=== PATIENT | female | born 1955 | race African-American/Black ===

== ENCOUNTER 2017-04-20 22:12 | Emergency (ER) | payer MEDICARE, MEDICAID ==
[~2017-04-20] VITALS: Ht 167.6 cm; Wt 75.0 kg
[~2017-04-20 22:12] MED LIST: ASPI81 CHEW; DILA100C PO; FOLI1TAB6 PO; GABA100C4 PO; HYDR-3516 PO; IPRASOL INH; LEVA750T9 PO; LEVEMIR SQ; LISI-519 PO; METO1TAB42 PO; NOVOLOGP2 SQ; PANT40TA3 PO; THIA100 PO; VENTAER INH
--- NOTE | 2017-04-20 22:56 | PD ---
HPI Chief Complaint: Seizure Time Seen by Provider: 22:56 Travel History International Travel<30 days: No Contact w/Intl Traveler<30days: No Traveled to known affect area: No History of Present Illness HPI 61-year-old female came to the emergency room brought by EMS [facility] for witnessed seizure once and possibly twice. In one of those occasions patient fell and hit her head. Patient has history of seizure disorder and is on Dilantin. She's been getting her medications like she is supposed to. Patient gets seizures infrequently. Currently she is awake. Vital signs are stable. She is complaining of some headache and neck pain. She has a hard collar on. No history of tingling or numbness or weakness of any of her extremities. [facility] Past Medical History Narrative Medical List of her past medical, surgical, social and family history is reviewed from the nursing note. Arthritis: Yes Asthma: Yes Cardiovascular Problems: Yes ([place] X2 ) High Cholesterol: No Chest Pain: Yes Congestive Heart Failure: No COPD: Yes Cerebrovascular Accident: No Diabetes: Yes Diminished Hearing: Yes (DIMINISHED HEARING L EAR) Gastrointestinal Disorders: Yes Genitourinary: No Hypertension: Yes Immune Disorder: No Implanted Vascular Access Dvce: Yes Musculoskeletal: Yes Neurologic: Yes Psychiatric: No Reproductive: No Respiratory: Yes Migraines: No Myocardial Infarction: Yes (X2) Seizures: Yes Sleep Apnea: No Ulcer: Yes ?: Not : 13 Para: 13 Miscarriage: 0 : 0 Past Surgical History Abdominal Surgery: No AICD: No Arteriovenous Shunt: No Cardiac Surgery: No Section: No Cholecystectomy: Yes Ear Surgery: No Endocrine Surgery: No Eye Surgery: No Genitourinary Surgery: No Gynecologic Surgery: No Insulin Pump: No Joint Replacement: Yes (BILAT TOTAL KNEE REPLACEMENT) Oral Surgery: No Pacemaker: No Thoracic Surgery: No Other Surgery: Yes Social History Alcohol Use: No (QUIT 8 YEARS AGO) Tobacco Use: Yes (1/2 PPD) Allergies-Medications (Allergen,Severity, Reaction): Coded Allergies: No Known Allergies (Unverified , 12/24/15) Comments No known drug allergies. Reported Meds & Prescriptions Reported Meds & Active Scripts Active Macrobid (Nitrofurantoin Monoh/Nitrofur Macro) 100 Mg Cap 100 Mg PO BID 10 Days Hydrocodone-Acetamin 5-325 mg (Hydrocodone/Acetaminophen) 5 Mg-325 Mg Tablet 1 Tab PO Q6HR PRN Duoneb (Ipratropium-Albuterol Neb) 0.5-2.5 Mg/3 Ml Neb 1 Nebule INH Q4HR NEB PRN Lisinopril 5 Mg Tab 5 Mg PO DAILY Gnp Vitamin B-1 (Thiamine HCl) 100 Mg Tab 100 Mg PO DAILY Folic Acid 1 Mg Tablet 1 Mg PO DAILY Levemir Inj (Insulin Detemir) 1,000 unit/ 10 ML Vial 5 Units SQ DAILY 30 Days Do not mix with any other Insulin. Pantoprazole (Pantoprazole Sodium) 40 Mg Tab 40 Mg PO DAILY Gabapentin 100 Mg Cap 200 Mg PO BID Dilantin (Phenytoin Extended) 100 Mg Cap 200 Mg PO DAILY Tgt Aspirin (Aspirin) 81 Mg Chw 81 Mg CHEW DAILY Levaquin (Levofloxacin) 750 Mg Tablet 750 Mg PO DAILY Reported Novolog Inj (Insulin Aspart) 1,000 Unit/10 Ml Vial 0 SQ DIRECTED Sliding Scale as directed. Valproic Acid 250 Mg Cap 250 Mg PO TID Vitamin C (Ascorbic Acid) 250 Mg Chew 500 Mg CHEW DAILY Zinc Sulfate 220 Mg Tab 220 Mg PO DAILY Metoprolol Succinate ER 24 HR (Metoprolol Succinate) 25 Mg Tab 25 Mg PO DAILY Ventolin Hfa (Albuterol Sulfate) 18 Gm Aero 0 INH UNKNOWN DOSE Narrative Medication List of her home medications reviewed from the nursing note. Review of Systems Except as stated in HPI: all other systems reviewed are Neg Neurologic: Positive: Headache Physical Exam Narrative GENERAL: Awake, alert, looks older than her age, coarse features of her face, no obvious distress SKIN: Focused skin assessment warm/dry. HEAD: Atraumatic. Normocephalic. EYES: Pupils equal and round. No scleral icterus. No injection or drainage. ENT: No nasal bleeding or discharge. Mucous membranes pink and moist. NECK: Trachea midline. No JVD. C-collar CARDIOVASCULAR: Regular rate and rhythm. No murmur appreciated. RESPIRATORY: No accessory muscle use. Clear to auscultation. Breath sounds equal bilaterally. GASTROINTESTINAL: Abdomen soft, non-tender, nondistended. Hepatic and splenic margins not palpable. MUSCULOSKELETAL: No obvious deformities. No clubbing. No cyanosis. No edema. NEUROLOGICAL: Awake and alert. No obvious cranial nerve deficits. Motor grossly within normal limits. Normal speech. PSYCHIATRIC: Appropriate mood and affect; insight and judgment normal. Data Data Last Documented VS Orders Orders Complete Blood Count With Diff (04/20/17 22:58) Comprehensive Metabolic Panel (04/20/17 22:58) Electrocardiogram (04/20/17 ) Ct Brain W/O Iv Contrast(Rout) (04/20/17 ) Blood Glucose (04/20/17 23:02) Ecg Monitoring (04/20/17 23:02) Iv Access Insert/Monitor (04/20/17 23:02) Oximetry (04/20/17 23:02) Sodium Chloride 0.9% Flush (Ns Flush) (04/20/17 23:15) Ct Cerv Spine W/O Contrast (04/20/17 ) ^ Seizure Precautions (04/20/17 23:02) Phenytoin (Dilantin) (04/20/17 22:58) Valproic Acid (Depakene) (04/20/17 23:39) Phenytoin (Dilantin) (04/21/17 00:00) Urinalysis - C+S If Indicated (04/20/17 23:56) ^ Straight Catheter (04/20/17 23:56) Urine Culture (04/21/17 00:05) Nitrofurantoin Monohyd Macrocr (Macrobid (04/21/17 01:00) Ed Discharge Order (04/21/17 00:51) Ondansetron Inj (Zofran Inj) (04/21/17 02:15) Labs Laboratory Tests Test 04/20/17 23:00 04/21/17 00:05 White Blood Count 15.5 TH/MM3 Red Blood Count 3.18 MIL/MM3 Hemoglobin 10.1 GM/DL Hematocrit 29.8 % Mean Corpuscular Volume 93.9 FL Mean Corpuscular Hemoglobin 31.7 PG Mean Corpuscular Hemoglobin Concent 33.7 % Red Cell Distribution Width 16.2 % Platelet Count 491 TH/MM3 Mean Platelet Volume 7.1 FL Neutrophils (%) (Auto) 77.6 % Lymphocytes (%) (Auto) 9.9 % Monocytes (%) (Auto) 10.3 % Eosinophils (%) (Auto) 1.2 % Basophils (%) (Auto) 1.0 % Neutrophils # (Auto) 12.0 TH/MM3 Lymphocytes # (Auto) 1.5 TH/MM3 Monocytes # (Auto) 1.6 TH/MM3 Eosinophils # (Auto) 0.2 TH/MM3 Basophils # (Auto) 0.2 TH/MM3 CBC Comment DIFF FINAL Differential Comment Blood Urea Nitrogen 20 MG/DL Creatinine 0.47 MG/DL Random Glucose 97 MG/DL Total Protein 6.3 GM/DL Albumin 2.0 GM/DL Calcium Level 8.2 MG/DL Alkaline Phosphatase 247 U/L Aspartate Amino Transf (AST/SGOT) 43 U/L Alanine Aminotransferase (ALT/SGPT) 50 U/L Total Bilirubin 0.1 MG/DL Sodium Level 143 MEQ/L Potassium Level 3.8 MEQ/L Chloride Level 109 MEQ/L Carbon Dioxide Level 26.8 MEQ/L Anion Gap 7 MEQ/L Estimat Glomerular Filtration Rate 164 ML/MIN Phenytoin (Dilantin) Level 5.8 MCG/ML Valproic Acid (Depakene) Level 4 MCG/ML Urine Color YELLOW Urine Turbidity HAZY Urine pH 6.0 Urine Specific [place] 1.017 Urine Protein TRACE mg/dL Urine Glucose (UA) NEG mg/dL Urine Ketones NEG mg/dL Urine Occult Blood TRACE Urine Nitrite NEG Urine Bilirubin NEG Urine Urobilinogen LESS THAN 2.0 MG/DL Urine Leukocyte Esterase LARGE Urine RBC 25 /hpf Urine WBC /hpf Urine WBC Clumps MANY Urine Squamous Epithelial Cells 1 /hpf Urine Bacteria RARE /hpf Urine Mucus FEW /lpf Microscopic Urinalysis Comment CATH-CULTURE IND MDM Medical Decision Making Medical Screen Exam Complete: Yes Emergency Medical Condition: Yes Medical Record Reviewed: Yes Interpretation(s) Twelve-lead EKG was reviewed by me. Normal sinus rhythm, normal axis, questionable old anterior UT, nonspecific ST-T wave changes. Heart rate of 98 bpm. Differential Diagnosis Breakthrough seizure, intracranial bleed, cervical fracture low Dilantin level Narrative Course 11:55 PM blood test results are back. Dilantin level is low. Rest of the blood test is within acceptable limits. Currently awaiting for the CT scan of her head and C-spine. Ordered her 300 mg of Dilantin here. If the CT scan is negative [facility]'ll [facility]. 12:48 AM UA is back in its positive for UTI. I've given her dose of Macrobid. I'm comfortable discharging this [facility] the [facility]. Procedures EKG Prior to Arrival: No Diagnosis Primary Impression: UTI (urinary tract infection) Qualified Codes: N39.0 - Urinary tract infection, site not specified Additional Impressions: Seizure Seizure disorder Referrals: Primary Care Physician 2 days Additional Instructions: Please return to the ER if condition worsens or any other new concerns. Take the medication as per the prescription direction. Get a repeat Dilantin level in 2-3 days. Med/Other Pt SpecificInfo: Prescription(s) given Scripts Nitrofurantoin Monohydrate Macrocrystals (Macrobid) 100 Mg Cap 100 MG PO BID for Infection for 10 Days, #20 CAP 0 Refills Prov: Ekaterina Alonzo MD 04/21/17 Disposition: 01 DISCHARGE HOME Condition: Stable Ekaterina Alonzo MD Apr 20, 2017 22:56
[2017-04-20 23:00] VITALS: BP 146/85; PULSE 96; RESP 16; O2SAT 98
[2017-04-20 23:13] VITALS: PULSE 98; RESP 20; O2SAT 93
[2017-04-20] MEDS ORDERED: SODIUM CHLORIDE 0.9% FLUSH 10 ML FLUSH IVF PRN (23:15)
[2017-04-20 23:19] LABS: BASOPHIL # 0.2 TH/MM3 (0-0.2); EOSINOPHIL # 0.2 TH/MM3 (0-0.4); EOSINOPHIL % 1.2 % (0.0-4.0); HEMATOCRIT 29.8 % (35.0-46.0); HEMO FLAGS DIFF FINAL; LYMPH % 9.9 % (9.0-44.0); LYMPHOCYTE # 1.5 TH/MM3 (1.0-4.8); MEAN CELL VOLUME 93.9 FL (80.0-100.0); MEAN CORPUSCULAR HEMOGLOBIN 31.7 PG (27.0-34.0); MEAN CORPUSCULAR HGB CONC 33.7 % (32.0-36.0); MONO % 10.3 % (0.0-8.0); NEUT % 77.6 % (16.0-70.0); PLATELET COUNT 491 TH/MM3 (150-450); RED BLOOD COUNT 3.18 MIL/MM3 (4.00-5.30); RED CELL DISTRIBUTION WIDTH 16.2 % (11.6-17.2); WHITE BLOOD COUNT 15.5 TH/MM3 (4.0-11.0)
[2017-04-20 23:33] LABS: ALT (GPT) 50 U/L (10-53); ANION GAP 7 MEQ/L (5-15); AST (GOT) 43 U/L (15-37); BICARBONATE 26.8 MEQ/L (21.0-32.0); BLOOD UREA NITROGEN 20 MG/DL (7-18); CHLORIDE 109 MEQ/L (98-107); GLOMERULAR FILTRATION RATE 164 ML/MIN (>89); POTASSIUM 3.8 MEQ/L (3.5-5.1); SODIUM (NA) 143 MEQ/L (136-145)
[2017-04-20 23:36] LABS: ALKALINE PHOSPHATASE 247 U/L (45-117); TOTAL BILIRUBIN ADULT 0.1 MG/DL (0.2-1.0)
[2017-04-20] MEDS ORDERED: ZINC220T PO (23:41)
[2017-04-20] MEDS ORDERED: METO1TAB42 PO (23:41)
[2017-04-20] MEDS ORDERED: VALP250C PO (23:41)
[2017-04-20] MEDS ORDERED: NOVOLOGP2 SQ (23:41)
[2017-04-20] MEDS ORDERED: VITA250C3 CHEW (23:41)
[2017-04-21] MEDS ORDERED: PHENYTOIN SODIUM 100 MG CAP PO ONE
--- NOTE | 2017-04-21 00:16 | RADRPT ---
EXAM DATE/TIME: 04/20/2017 23:49 [facility] COMPARISON: CT BRAIN W/O CONTRAST, March 21, 2017, 21:19. INDICATIONS : Fall. RADIATION DOSE: 33.32 CTDIvol (mGy) MEDICAL HISTORY : Seizures. Hypertension. SURGICAL HISTORY : None. ENCOUNTER: Initial ACUITY: 1 day PAIN SCALE: Non-responsive LOCATION: cranial TECHNIQUE: Multiple contiguous axial images were obtained of the head. Using automated exposure control and adj ustment of the mA and/or kV according to patient size, radiation dose was kept as low as reasonably a chievable to obtain optimal diagnostic quality images. DICOM format image data is available electro nically for review and comparison. FINDINGS: Perihepatic areas of decreased density in the bilateral periventricular white matter and centrum semi ovale A., unchanged. There is mild atrophy. No signs of hemorrhage, mass or acute infarct. There are no fractures. CONCLUSION: No acute disease. Milind Steven MD on April 21, 2017 at 0:15 Board Certified Radiologist. This report was verified electronically.
--- NOTE | 2017-04-21 00:19 | RADRPT ---
EXAM DATE/TIME: 04/20/2017 23:49 [facility] COMPARISON: No previous studies available for comparison. INDICATIONS : Fall. RADIATION DOSE: 25.64 CTDIvol (mGy) MEDICAL HISTORY : Hypertension. SURGICAL HISTORY : None. ENCOUNTER: Initial ACUITY: 1 day PAIN SCALE: Non-responsive LOCATION: neck TECHNIQUE: Volumetric scanning of the cervical spine was performed. Multiplanar reconstructions in the sagittal, coronal and oblique axial planes were performed. Using automated exposure control and adjustment o f the mA and/or kV according to patient size, radiation dose was kept as low as reasonably achievable to obtain optimal diagnostic quality images. DICOM format image data is available electronically f or review and comparison. FINDINGS: Severe disc space narrowing at C4-5 through C7-T1 identified. No prevertebral soft tissue swelling or compression deformity. Prominent multilevel osteophyte formation greatest at C4-C7. Alignment is nor mal. The odontoid process is intact. Multilevel uncovertebral hypertrophy. Severe stenosis at C3-4 se condary to a broad-based protrusion demonstrating mass effect on the cord. There is severe canal sten osis at C4-5 with mild mass effect on the cord and severe bilateral foraminal narrowing secondary to uncovertebral hypertrophy and a diffuse disc osteophyte complex. Moderate to severe canal stenosis at C5-6 secondary to a diffuse disc osteophyte complex with mass effect on the cord. There is severe bi lateral foraminal narrowing secondary to uncovertebral hypertrophy. Moderate stenosis at C6-7 with mi ld mass effect on the cord secondary to osteophytic ridging and a diffuse disc bulge. Severe bilatera l foraminal narrowing. There is a large right-sided pleural effusion. CONCLUSION: Severe degenerative changes without evidence for acute fracture. Right pleural effusion. Milind Steven MD on April 21, 2017 at 0:15 Board Certified Radiologist. This report was verified electronically.
[2017-04-21 00:29] LABS: BACTERIA, URINE RARE /hpf; BLOOD, URINE TRACE (NEG); COMMENT (UR) CATH-CULTURE IND; CULTURE IF INDICATED CATH CULTURE IND; GLUCOSE,URINE NEG (NEG); KETONE, URINE NEG (NEG); MUCUS URINE FEW /lpf (OCC); NITRITE,URINE NEG (NEG); SQUAMOUS EPITHELIAL CELL URINE 1 /hpf (0-5); URINE COLOR YELLOW (YELLW/STRAW)
[2017-04-21] MEDS ORDERED: MACR100C2 PO (00:51)
[2017-04-21] MEDS ORDERED: NITROFURANTOIN MONOHYD MACROCR 100 MG CAP PO ONE (01:00)
[2017-04-21] MEDS ORDERED: ONDANSETRON HCL 4 MG/2 ML VIAL ONE (02:15)
[2017-04-21 07:00] VITALS: BP 126/78; PULSE 106; RESP 16; TEMP 98.3; O2SAT 92
--- NOTE | 2017-04-21 07:59 | EKG ---
Date Performed: 04/20/2017 Time Performed: 22:53:52 PTAGE: 61 years EKG: Sinus rhythm NORMAL ECG Compared to prior electrocardiogram, ST-T wave changes have resolved and premature atrial contractions are no longer present. PREVIOUS TRACING : 03/17/2017 13.46 DOCTOR: Heladio Cruz Interpretating Date/Time 04/21/2017 07:57:42
== END 2017-04-21 08:44 | disposition home or self-care (01) ==
LOC: NEPC 22:12
DX: N39.0 Urinary tract infection, site not specified (principal); G40.909 Epilepsy, unspecified, not intractable, without status epilepticus; R51 Headache; M54.2 Cervicalgia; B96.89 Other specified bacterial agents as the cause of diseases classified elsewhere; J45.909 Unspecified asthma, uncomplicated; E11.9 Type 2 diabetes mellitus without complications; I10 Essential (primary) hypertension; H91.90 Unspecified hearing loss, unspecified ear; I25.2 Old myocardial infarction; F17.200 Nicotine dependence, unspecified, uncomplicated; Z79.4 Long term (current) use of insulin; Z87.19 Personal history of other diseases of the digestive system; Z87.39 Personal history of other diseases of the musculoskeletal system and connective tissue
CPT/HCPCS: 70450; 72125; 80053; 80164; 80185; 81001; 85025; 87086; 93005; 99285; J2405

== ENCOUNTER 2017-05-30 01:14 | Observation (INO) | payer MEDICARE, MEDICAID ==
[2017-05-30] VITALS (12 sets, daily range): BP systolic 104–141; BP diastolic 62–77; PULSE 89–98; RESP 18–25; TEMP 96.3–98.2; O2SAT 96–100
[~2017-05-30] VITALS: Ht 167.6 cm; Wt 65.0 kg
[~2017-05-30 01:14] MED LIST changes: +MACR100C2 PO; +VALP250C PO; +VITA250C3 CHEW; +ZINC220T PO
[2017-05-30] MEDS ORDERED: LORazepam 2 MG/ML VIAL ONE (01:26)
[2017-05-30] MEDS ORDERED: SODIUM CHLORIDE 0.9% FLUSH 10 ML FLUSH IVF PRN (01:30)
[2017-05-30] MEDS ORDERED: LORazepam 2 MG/ML VIAL IV PUSH ONE (01:45)
--- NOTE | 2017-05-30 01:47 | RADRPT ---
EXAM DATE/TIME: 05/30/2017 01:30 [facility] COMPARISON: CHEST SINGLE AP, April 01, 2017, 3:24. INDICATIONS : MAS, CVA, short of breath. MEDICAL HISTORY : None. SURGICAL HISTORY : None. ENCOUNTER: Initial ACUITY: 1 day PAIN SCORE: 0/10 LOCATION: Bilateral chest FINDINGS: The heart size is normal. There is increased density in the medial left base. The right lung is gross ly clear. No effusion is seen. CONCLUSION: Left medial base consolidation or atelectasis. Alexander Willis MD on May 30, 2017 at 1:44 Board Certified Radiologist. This report was verified electronically.
[2017-05-30 02:19] LABS: AUTOMATED NEUTROPHIL # 10.8 TH/MM3 (1.8-7.7); BASOPHIL # 0.1 TH/MM3 (0-0.2); BASOPHIL % 0.7 % (0.0-2.0); EOSINOPHIL # 0.4 TH/MM3 (0-0.4); EOSINOPHIL % 2.6 % (0.0-4.0); HEMATOCRIT 35.4 % (35.0-46.0); HEMOGLOBIN 11.7 GM/DL (11.6-15.3); LYMPH % 18.3 % (9.0-44.0); LYMPHOCYTE # 2.8 TH/MM3 (1.0-4.8); MEAN CORPUSCULAR HEMOGLOBIN 28.9 PG (27.0-34.0); MEAN CORPUSCULAR HGB CONC 33.2 % (32.0-36.0); MEAN PLATELET VOLUME 7.8 FL (7.0-11.0); MONO % 8.5 % (0.0-8.0); MONOCYTE # 1.3 TH/MM3 (0-0.9); NEUT % 69.9 % (16.0-70.0); PLATELET COUNT 504 TH/MM3 (150-450); RED BLOOD COUNT 4.06 MIL/MM3 (4.00-5.30); RED CELL DISTRIBUTION WIDTH 16.3 % (11.6-17.2); WHITE BLOOD COUNT 15.4 TH/MM3 (4.0-11.0)
[2017-05-30 02:21] LABS: AMORPHOUS SEDIMENT, URINE OCC; BACTERIA, URINE MANY /hpf; BILIRUBIN, URINE NEG (NEG); BLOOD, URINE SMALL (NEG); GLUCOSE,URINE NEG (NEG); HYALINE CAST, URINE 8 /lpf (RARE); KETONE, URINE NEG (NEG); NITRITE,URINE NEG (NEG); URINE COLOR YELLOW (YELLW/STRAW); URINE LEUKOCYTE ESTERASE LARGE (NEG)
[2017-05-30] MEDS ORDERED: PIPERACIL-TAZO 3.375 GM PREMIX 50 ML IV ONE (02:30)
[2017-05-30 02:31] LABS: ALBUMIN 3.1 GM/DL (3.4-5.0); ALT (GPT) 156 U/L (10-53); AST (GOT) 80 U/L (15-37); BICARBONATE 24.8 MEQ/L (21.0-32.0); BLOOD UREA NITROGEN 42 MG/DL (7-18); CALCIUM 9.2 MG/DL (8.5-10.1); CHLORIDE 104 MEQ/L (98-107); CREATININE 0.57 MG/DL (0.50-1.00); GLOMERULAR FILTRATION RATE 131 ML/MIN (>89); GLUCOSE,RANDOM 79 MG/DL (74-106); SODIUM (NA) 137 MEQ/L (136-145)
[2017-05-30 02:35] LABS: ALKALINE PHOSPHATASE 888 U/L (45-117); TOTAL BILIRUBIN ADULT 0.2 MG/DL (0.2-1.0); TOTAL PROTEIN 7.8 GM/DL (6.4-8.2); TROPONIN I LESS THAN 0.02 NG/ML (0.02-0.05)
[2017-05-30] MEDS ORDERED: GABA300C5 PO (02:49)
[2017-05-30] MEDS ORDERED: FERR325T18 PO (02:49)
[2017-05-30] MEDS ORDERED: LEVEMIR SQ (02:49)
[2017-05-30] MEDS ORDERED: TYLE325T PO (02:49)
[2017-05-30] MEDS ORDERED: IPRASOL INH (02:49)
[2017-05-30] MEDS ORDERED: PHEN100C PO (02:49)
[2017-05-30] MEDS ORDERED: DIFL100T PO (02:49)
[2017-05-30] MEDS ORDERED: MIRTA15 PO (02:49)
[2017-05-30] MEDS ORDERED: CIPR-9 PO (02:49)
[2017-05-30] MEDS ORDERED: AMBI5TAB PO (02:49)
--- NOTE | 2017-05-30 02:54 | RADRPT ---
EXAM DATE/TIME: 05/30/2017 02:18 [facility] COMPARISON: CT BRAIN W/O CONTRAST, April 20, 2017, 23:49. INDICATIONS : Seizure. RADIATION DOSE: 31.60 CTDIvol (mGy) MEDICAL HISTORY : Cardiovascular disease. Hypertension. SURGICAL HISTORY : Cholecystectomy. hips ENCOUNTER: Initial ACUITY: 1 day PAIN SCALE: Non-responsive LOCATION: cranial TECHNIQUE: Multiple contiguous axial images were obtained of the head. Using automated exposure control and adj ustment of the mA and/or kV according to patient size, radiation dose was kept as low as reasonably a chievable to obtain optimal diagnostic quality images. DICOM format image data is available electro nically for review and comparison. FINDINGS: CEREBRUM: The ventricles are normal for age. No evidence of midline shift, mass lesion, hemorrhage or acute in farction. There is mild low-density in the periventricular white matter. No extra-axial fluid collec tions are seen. POSTERIOR FOSSA: The cerebellum and brainstem are intact. The 4th ventricle is midline. The cerebellopontine angle i s unremarkable. EXTRACRANIAL: The visualized portion of the orbits is intact. SKULL: The calvaria is intact. No evidence of skull fracture. CONCLUSION: No acute intracranial abnormality is seen. There is mild increased density in the periventricular whi te matter likely related to small vessel ischemic change. Alexander Willis MD on May 30, 2017 at 2:51 Board Certified Radiologist. This report was verified electronically.
--- NOTE | 2017-05-30 03:43 | PD ---
HPI . Seizures Chief Complaint: Seizure Time Seen by Provider: :18 Travel History International Travel<30 days: No Contact w/Intl Traveler<30days: No Traveled to known affect area: No History of Present Illness HPI 7-year-old female history of seizures, been more irritable irritable and has had more seizures today than her usual despite having increase in her seizure medications. 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 Above as per communication of Melanie BROOKS [facility] Past Medical History Narrative Medical Past medical history reviewed Medical History: Unable to Obtain Arthritis: Yes Asthma: Yes Cardiovascular Problems: Yes ([place] X2 ) High Cholesterol: No Chest Pain: Yes Congestive Heart Failure: No COPD: Yes Cerebrovascular Accident: No Diabetes: Yes Patient Takes Glucophage: No Diminished Hearing: Yes (DIMINISHED HEARING L EAR) Gastrointestinal Disorders: Yes Genitourinary: No Hypertension: Yes Immune Disorder: No Implanted Vascular Access Dvce: Yes Musculoskeletal: Yes Neurologic: Yes Psychiatric: No Reproductive: No Respiratory: Yes Migraines: No Myocardial Infarction: Yes (X2) Seizures: Yes Sleep Apnea: No Ulcer: Yes Tetanus Vaccination: Unknown ?: Unknown : 9 Para: 9 Miscarriage: 0 : 0 Past Surgical History Surgical History: Unable to Obtain Abdominal Surgery: No AICD: No Arteriovenous Shunt: No Cardiac Surgery: No Section: No Cholecystectomy: Yes Ear Surgery: No Endocrine Surgery: No Eye Surgery: No Genitourinary Surgery: No Gynecologic Surgery: No Insulin Pump: No Joint Replacement: Yes (BILAT TOTAL KNEE REPLACEMENT) Oral Surgery: No Pacemaker: No Thoracic Surgery: No Other Surgery: Yes Social History Alcohol Use: No (QUIT 8 YEARS AGO) Tobacco Use: No (1/2 PPD) Substance Use: No (UTO) Allergies-Medications (Allergen,Severity, Reaction): Coded Allergies: No Known Allergies (Unverified Adverse Reaction, Unknown, 05/30/17) Reported Meds & Prescriptions Reported Meds & Active Scripts Active Hydrocodone-Acetamin 5-325 mg (Hydrocodone/Acetaminophen) 5 Mg-325 Mg Tablet 1 Tab PO Q6HR PRN Lisinopril 5 Mg Tab 5 Mg PO DAILY Gnp Vitamin B-1 (Thiamine HCl) 100 Mg Tab 100 Mg PO DAILY Folic Acid 1 Mg Tablet 1 Mg PO DAILY Levemir Inj (Insulin Detemir) 1,000 unit/ 10 ML Vial 5 Units SQ DAILY 30 Days Do not mix with any other Insulin. Pantoprazole (Pantoprazole Sodium) 40 Mg Tab 40 Mg PO DAILY Tgt Aspirin (Aspirin) 81 Mg Chw 81 Mg CHEW DAILY Reported Duoneb (Ipratropium-Albuterol Neb) 0.5-2.5 Mg/3 Ml Neb 1 Nebule INH Q4HR NEB Ambien (Zolpidem Tartrate) 5 Mg Tab 5 Mg PO HS PRN Phenytoin Extended 100 Mg Cap 200 Mg PO TID Gabapentin 300 Mg Cap 300 Mg PO BID Cipro (Ciprofloxacin HCl) 500 Mg Tab 500 Mg PO BID Tylenol (Acetaminophen) 325 Mg Tab 650 Mg PO HS PRN Mirtazapine 15 Mg Tab 15 Mg PO HS Levemir Inj (Insulin Detemir) 1,000 unit/ 10 ML Vial 10 Units SQ DAILYAC Do not mix with any other Insulin. Ferrous Sulfate 325 Mg (65 Mg Iron) Tablet 325 Mg PO DAILY Diflucan (Fluconazole) 100 Mg Tab 100 Mg PO DAILY 5 Days Novolog Inj (Insulin Aspart) 1,000 Unit/10 Ml Vial 0 SQ DIRECTED Sliding Scale as directed. Vitamin C (Ascorbic Acid) 250 Mg Chew 500 Mg CHEW DAILY Zinc Sulfate 220 Mg Tab 220 Mg PO DAILY Metoprolol Succinate ER 24 HR (Metoprolol Succinate) 25 Mg Tab 25 Mg PO DAILY Narrative Medication Allergies and medications reviewed Review of Systems ROS Limitations: Clinical Condition, Altered Mental Status, Poor Historian Eyes: No: Visual changes Physical Exam Exam Limitations: Altered Mental Status, Poor Historian Narrative GENERAL: Awake and not answering questions, moaning, seemingly uncomfortable. SKIN: Warm and dry. Color is normal no diaphoresis cyanosis or pallor HEAD: Atraumatic. Normocephalic. EYES: Pupils equal and round. No scleral icterus. No injection or drainage. ENT: No nasal bleeding or discharge. Mucous membranes pink and moist. NECK: Trachea midline. No JVD. Supple full range of motion CARDIOVASCULAR tachycardic regular 110 bpm RESPIRATORY: No accessory muscle use. Clear to auscultation. Breath sounds equal bilaterally. GASTROINTESTINAL: Abdomen soft, non-tender, nondistended. Hepatic and splenic margins not palpable. MUSCULOSKELETAL: Extremities without clubbing, cyanosis, or edema. No obvious deformities. NEUROLOGICAL: Awake confused, moaning. Contractions, difficult exam PSYCHIATRIC: Nonverbal, difficult exam. Data Data Last Documented VS Vital Signs Date Time Temp Pulse Resp B/P (MAP) Pulse Ox O2 Delivery O2 Flow Rate FiO2 05/30/17 01:36 98 18 115/77 (90) 98 Room Air 05/30/17 01:36 2.00 Orders Orders Electrocardiogram (05/30/17 01:18) Prothrombin Time / Inr (Pt) (05/30/17 01:18) Act Partial Throm Time (Ptt) (05/30/17:18) Complete Blood Count With Diff (05/30/17 01:18) Comprehensive Metabolic Panel (05/30/17 01:18) Creatine Kinase (Cpk) (05/30/17:18) Troponin I (05/30/17:18) Urinalysis - C+S If Indicated (05/30/17 01:18) Ct Brain W/O Iv Contrast(Rout) (05/30/17 01:18) Chest, Single Ap (05/30/17 01:18) Ecg Monitoring (05/30/17 01:18) Iv Access Insert/Monitor (05/30/17 01:18) Oximetry (05/30/17 01:18) Blood Glucose (05/30/17 01:18) Sodium Chloride 0.9% Flush (Ns Flush) (05/30/17 01:30) Influenzae A/B Antigen (05/30/17 01:18) Lorazepam Inj (Ativan Inj) (05/30/17 01:26) Lorazepam Inj (Ativan Inj) (05/30/17 01:45) Lactic Acid (05/30/17 02:15) Urine Culture (05/30/17 01:59) Piperacil-Tazo 3.375 Gm Premix (Zosyn 3. (05/30/17 02:30) Place In Observation (05/30/17 ) Vital Signs (Adult) Q4H (05/30/17 03:32) Activity Oob With Assistance (05/30/17 03:32) General Accountant / Telemetry .CONTINUOUS (05/30/17 03:32) Diet Heart Healthy (05/30/17 Breakfast) Sodium Chloride 0.9% Flush (Ns Flush) (05/30/17 03:45) Sodium Chloride 0.9% Flush (Ns Flush) (05/30/17 09:00) Basic Metabolic Panel (Bmp) (05/31/17 06:00) Complete Blood Count With Diff (05/31/17 06:00) Pt Request For Service (05/30/17 03:32) Case Management Consult (05/30/17 03:32) Naloxone Inj (Narcan Inj) (05/30/17 03:45) ^ Seizure Precautions (05/30/17 03:32) Phenobarbital (05/30/17 03:32) Piperacil-Tazo 4.5 Gm Premix (Zosyn 4.5 (05/30/17 09:00) Admit Order (Ed Use Only) (05/30/17 03:35) Labs Laboratory Tests Test 05/30/17 01:51 05/30/17 01:59 White Blood Count 15.4 TH/MM3 Red Blood Count 4.06 MIL/MM3 Hemoglobin 11.7 GM/DL Hematocrit 35.4 % Mean Corpuscular Volume 87.0 FL Mean Corpuscular Hemoglobin 28.9 PG Mean Corpuscular Hemoglobin Concent 33.2 % Red Cell Distribution Width 16.3 % Platelet Count 504 TH/MM3 Mean Platelet Volume 7.8 FL Neutrophils (%) (Auto) 69.9 % Lymphocytes (%) (Auto) 18.3 % Monocytes (%) (Auto) 8.5 % Eosinophils (%) (Auto) 2.6 % Basophils (%) (Auto) 0.7 % Neutrophils # (Auto) 10.8 TH/MM3 Lymphocytes # (Auto) 2.8 TH/MM3 Monocytes # (Auto) 1.3 TH/MM3 Eosinophils # (Auto) 0.4 TH/MM3 Basophils # (Auto) 0.1 TH/MM3 CBC Comment DIFF FINAL Differential Comment Prothrombin Time 10.0 SEC Prothromb Time International Ratio 1.0 RATIO Activated Partial Thromboplast Time 27.5 SEC Blood Urea Nitrogen 42 MG/DL Creatinine 0.57 MG/DL Random Glucose 79 MG/DL Total Protein 7.8 GM/DL Albumin 3.1 GM/DL Calcium Level 9.2 MG/DL Alkaline Phosphatase 888 U/L Aspartate Amino Transf (AST/SGOT) 80 U/L Alanine Aminotransferase (ALT/SGPT) 156 U/L Total Bilirubin 0.2 MG/DL Sodium Level 137 MEQ/L Potassium Level 4.8 MEQ/L Chloride Level 104 MEQ/L Carbon Dioxide Level 24.8 MEQ/L Anion Gap 8 MEQ/L Estimat Glomerular Filtration Rate 131 ML/MIN Total Creatine Kinase 86 U/L Troponin I LESS THAN 0.02 NG/ML Urine Color YELLOW Urine Turbidity CLOUDY Urine pH 7.0 Urine Specific [place] 1.018 Urine Protein 30 mg/dL Urine Glucose (UA) NEG mg/dL Urine Ketones NEG mg/dL Urine Occult Blood SMALL Urine Nitrite NEG Urine Bilirubin NEG Urine Urobilinogen LESS THAN 2.0 MG/DL Urine Leukocyte Esterase LARGE Urine RBC 15 /hpf Urine WBC /hpf Urine Amorphous Sediment OCC Urine Bacteria MANY /hpf Urine Hyaline Casts 8 /lpf Microscopic Urinalysis Comment CATH-CULTURE IND Lactic Acid Level 1.2 mmol/L MDM Medical Decision Making Medical Screen Exam Complete: Yes Emergency Medical Condition: Yes Medical Record Reviewed: Yes Differential Diagnosis Seizures, postictal, infection, sepsis, multi-infarct dementia Narrative Course Laboratory examinations reviewed, patient noted to have elevated white blood cell count 15.4, and urinalysis positive for UTI. Patient was pancultured at presentation, given broad-spectrum antibiotics and gentle IV fluids. Patient's heart rate improved patient appears more comfortable Case discussed with hospitalist service Dr Victor admitted Diagnosis Primary Impression: UTI (urinary tract infection) Qualified Codes: N39.0 - Urinary tract infection, site not specified Admitting Information Admitting Physician Requests: Admit Condition: José Capellan MD May 30, 2017 03:43
[2017-05-30] MEDS ORDERED: NALOXONE HCL 0.4 MG/ML AMP IV PUSH PRN (03:45)
[2017-05-30] MEDS ORDERED: SODIUM CHLORIDE 0.9% FLUSH 10 ML FLUSH IV FLUSH PRN (03:45)
--- NOTE | 2017-05-30 04:38 | HHI.HP ---
HPI Service [facility] Primary Care Physician Bro Hayes MD Admission Diagnosis Urosepsis Diagnoses: Travel History International Travel<30 Days: No Contact w/Intl Traveler <30 Da: No Traveled to Known Affected Are: No History of Present Illness History per [facility] transfer notes, ER physician communication, and review of medical records. Patient was sent from the [facility] because of altered mental status. Previous records reveal that patient has history of seizures and is on Dilantin. She had 1 ER visit on April 20, 2017 with seizure-like activity. Her Dilantin dosing was changed then. In the emergency room, patient was found to be altered with UA being abnormal. Admission was given to medical team for UTI with altered mental status. Upon my arrival, patient is quite lethargic. She will would moan to painful sternal rub. She is afebrile. She has obvious distended bladder on examination. Therefore bladder scan was ordered stat and Jacob catheter was placed. Patient drains more than 2500 mm of urine immediately. Her blood sugars on arrival was around 76. She is a diabetic. On stat recheck in ER upon my arrival the blood sugar was around 96. Dextrose 50 one ampule was given. After the above treatment, patient is more awake with eyes opening spontaneously and checking around. Her CO2 was normal. Review of Systems ROS Limitations: Altered Mental Status, Poor Historian Past Family Social History Past Medical History Per [facility] transfer notes: Seizure disorder CADstatus post [place] 2 Hypertension Hyperlipidemia Diabetes COPD Peripheral neuropathy GERD Insomnia Past Surgical History Cholecystectomy Bilateral total knee replacement Allergies: Coded Allergies: No Known Allergies (Unverified Allergy, Unknown, 05/30/17) Family History Unknown. However per EMR: Patient's mother had heart disease and father from complications of alcohol abuse. Social History Unknown. However per EMR: Patient has prior history of polysubstance abuse including alcohol, cocaine, and daily marijuana use. Was also a smoker. Physical Exam Vital Signs Vital Signs Date Time Temp Pulse Resp B/P (MAP) Pulse Ox O2 Delivery O2 Flow Rate FiO2 05/30/17 01:36 98 18 115/77 (90) 98 Room Air 05/30/17 01:36 99 Nasal Cannula 2.00 05/30/17 01:36 99 22 98 2.00 05/30/17 01:31 98 22 107/75 (86) 99 Physical Exam GENERAL: This middle-aged lady, looks much older than her age. Confused. But spontaneously opening her eyes after Jacob catheter was inserted. Initially was almost obtunded., in no apparent distress. SKIN: No rashes, ecchymoses or lesions. Cool and dry. HEAD: Atraumatic. Normocephalic. No temporal or scalp tenderness. EYES: No scleral icterus. No injection or drainage. ENT: Nose without bleeding, purulent drainage or septal hematoma.Airway patent. NECK: Trachea midline. No JVD. Supple, nontender, no meningeal signs. CARDIOVASCULAR: Regular rate and rhythm without murmurs, gallops, or rubs. RESPIRATORY: Clear to auscultation. Breath sounds equal bilaterally. No wheezes , rales, or rhonchi. GASTROINTESTINAL: Abdomen soft, non-tender, nondistended.No guarding. Severe suprapubic distention MUSCULOSKELETAL: Extremities without clubbing, cyanosis. NEUROLOGICAL: Awake and alert. Motor and sensory grossly within normal limits. Normal speech. Laboratory Laboratory Tests Test 05/30/17 01:51 05/30/17 01:59 White Blood Count 15.4 Red Blood Count 4.06 Hemoglobin 11.7 Hematocrit 35.4 Mean Corpuscular Volume 87.0 Mean Corpuscular Hemoglobin 28.9 Mean Corpuscular Hemoglobin Concent 33.2 Red Cell Distribution Width 16.3 Platelet Count 504 Mean Platelet Volume 7.8 Neutrophils (%) (Auto) 69.9 Lymphocytes (%) (Auto) 18.3 Monocytes (%) (Auto) 8.5 Eosinophils (%) (Auto) 2.6 Basophils (%) (Auto) 0.7 Neutrophils # (Auto) 10.8 Lymphocytes # (Auto) 2.8 Monocytes # (Auto) 1.3 Eosinophils # (Auto) 0.4 Basophils # (Auto) 0.1 CBC Comment DIFF FINAL Differential Comment Prothrombin Time 10.0 Prothromb Time International Ratio 1.0 Activated Partial Thromboplast Time 27.5 Blood Urea Nitrogen 42 Creatinine 0.57 Random Glucose 79 Total Protein 7.8 Albumin 3.1 Calcium Level 9.2 Alkaline Phosphatase 888 Aspartate Amino Transf (AST/SGOT) 80 Alanine Aminotransferase (ALT/SGPT) 156 Total Bilirubin 0.2 Sodium Level 137 Potassium Level 4.8 Chloride Level 104 Carbon Dioxide Level 24.8 Anion Gap 8 Estimat Glomerular Filtration Rate 131 Total Creatine Kinase 86 Troponin I LESS THAN 0.02 Urine Color YELLOW Urine Turbidity CLOUDY Urine pH 7.0 Urine Specific [place] 1.018 Urine Protein 30 Urine Glucose (UA) NEG Urine Ketones NEG Urine Occult Blood SMALL Urine Nitrite NEG Urine Bilirubin NEG Urine Urobilinogen LESS THAN 2.0 Urine Leukocyte Esterase LARGE Urine RBC 15 Urine WBC Urine Amorphous Sediment OCC Urine Bacteria MANY Urine Hyaline Casts 8 Microscopic Urinalysis Comment CATH-CULTURE IND Lactic Acid Level 1.2 Date/Time Source Procedure Growth Status 05/30/17 01:59 Nasal Washing Influenza Types A,B Antigen (SADIE) - Final NEGATIVE FOR FLU A AND B ANTIGEN.... Complete 05/30/17 01:59 Urine Catheterized Urine Urine Culture Pending Received Result Diagram: 05/30/17 0151 05/30/17 015 Imaging Last [address] 05/30/17117 Signed Impressions: Service Date/Time: Tuesday, May 30, 2017 02:18 - CONCLUSION: No acute intracranial abnormality is seen. There is mild increased density in the periventricular white matter likely related to small vessel ischemic change. Alexander Willis MD Chest X-Ray 05/30/17117 Signed Impressions: Service Date/Time: Tuesday, May 30, 2017 01:30 - CONCLUSION: Left medial base consolidation or atelectasis. Alexander Willis MD Caprini VTE Risk Assessment Caprini VTE Risk Assessment: Mod/High Risk (score >= 2) Caprini Risk Assessment Model Point Value = 1 Point Value = 2 Point Value = 3 Point Value = 5 Age 41-60 Minor surgery BMI > 25 kg/m2 Swollen legs Varicose veins or History of unexplained or recurrent spontaneous Oral contraceptives or hormone replacement Sepsis (< 1 month) Serious lung disease, including pneumonia (< 1 month) Abnormal pulmonary function Acute myocardial infarction Congestive heart failure (< 1 month) History of inflammatory bowel disease Medical patient at bed rest Age 61-74 Arthroscopic surgery Major open surgery (> 45 min) Laparoscopic surgery (> 45 min) Malignancy Confined to bed (> 72 hours) Immobilizing plaster cast Central venous access Age >= 75 History of VTE Family history of VTE Factor V Leiden Prothrombin [id number] Lupus anticoagulant Anticardiolipin antibodies Elevated serum homocysteine Heparin-induced thrombocytopenia Other congenital or acquired thrombophilia Stroke (< 1 month) Elective arthroplasty Hip, pelvis, or leg fracture Acute spinal cord injury (< 1 month) Prophylaxis Regimen Total Risk Factor Score Risk Level Prophylaxis Regimen 0-1 Low Early ambulation 2 Moderate Order ONE of the following: *Sequential Compression Device (SCD) *Heparin 5000 units SQ BID 3-4 Higher Order ONE of the following medications: *Heparin 5000 units SQ TID *Enoxaparin/Lovenox 40 mg SQ daily (WT < 150 kg, CrCl > 30 mL/min) *Enoxaparin/Lovenox 30 mg SQ daily (WT < 150 kg, CrCl > 10-29 mL/min) *Enoxaparin/Lovenox 30 mg SQ BID (WT < 150 kg, CrCl > 30 mL/min) AND/OR *Sequential Compression Device (SCD) 5 or more Highest Order ONE of the following medications: *Heparin 5000 units SQ TID (Preferred with Epidurals) *Enoxaparin/Lovenox 40 mg SQ daily (WT < 150 kg, CrCl > 30 mL/min) *Enoxaparin/Lovenox 30 mg SQ daily (WT < 150 kg, CrCl > 10-29 mL/min) *Enoxaparin/Lovenox 30 mg SQ BID (WT < 150 kg, CrCl > 30 mL/min) AND *Sequential Compression Device (SCD) Assessment and Plan Assessment and Plan Impression: ams possible UTI causing this possible hypoglycemic seizures possible dilantin toxicity with recent ER visit of seizure episode with increased dosing on discharge Acute urinary retention- likely major cause of her AMS acute LFT abnormality- likely from prior hx of etoh abuse/ hepatitis Seizure disorder CADstatus post [place] 2 Hypertension Hyperlipidemia Diabetes COPD Peripheral neuropathy GERD Insomnia Plan: neurochecks eeg for now ct zoysn for uti check bs stat and q4hr start on d5ns at 84cc/hr dilantin level now Jacob catheter now. Patient drainage more than 200 2500 cc of urine. High risk for bladder rupture. abdomen US to evaluate for LFT elevation/ urine retention add on dilantin level to blood in lab resume home meds - see med rec hold dilantin till levels are out Hold sedative medications. Hold Cipro due to altered mentation. Hold long-acting insulin until mental status improved. DVT prophylaxis with Lovenox. Code Status full code per [facility] transfer notes Discussed Condition With patient, her nurse, ER Diana Shook MD May 30, 2017 04:38
[2017-05-30] MEDS ORDERED: DEXT 5%-NACL 0.9% 1000 ML INJ 1,000 ML IV SCH (04:45)
[2017-05-30] MEDS ORDERED: DEXTROSE 50% IN WATER 50 ML VIAL(D50) IV PUSH PRN (04:45)
[2017-05-30] MEDS ORDERED: GLUCAGON 1 MG/ML VIAL OTHER PRN (04:45)
[2017-05-30 05:08] LABS: LIPASE 87 U/L (73-393)
[2017-05-30 05:22] LABS: PHENYTOIN (DILANTIN) 41.6 MCG/ML (10.0-20.0)
[2017-05-30] MEDS: FERROUS SULFATE 325 MG (65 MG ELEMENTAL IRON) TAB PO SCH (09:00)
[2017-05-30] MEDS: ENOXAPARIN SODIUM 40 MG/0.4 ML SYRINGE SQ SCH (09:00)
[2017-05-30] MEDS: ASPIRIN 81 MG CHEW TAB CHEW SCH (09:00)
[2017-05-30] MEDS: METOPROLOL SUCCINATE 25 MG EXTENDED RELEASE TAB PO SCH (09:00)
[2017-05-30] MEDS: THIAMINE HCL 100 MG TAB PO SCH (09:00)
[2017-05-30] MEDS: PANTOPRAZOLE SOD 40 MG DELAYED RELEASE TAB PO SCH (09:00)
[2017-05-30] MEDS: SODIUM CHLORIDE 0.9% FLUSH 10 ML FLUSH IV FLUSH SCH ×2 (09:00→20:05)
[2017-05-30] MEDS ORDERED: FLUCONAZOLE 100 MG TAB PO SCH (09:00)
[2017-05-30] MEDS: LISINOPRIL 5 MG TAB PO SCH (09:00)
[2017-05-30] MEDS: FOLIC ACID 1 MG TAB PO SCH (09:00)
--- NOTE | 2017-05-30 11:01 | RADRPT ---
EXAM DATE/TIME: 05/30/2017 10:22 [facility] COMPARISON: CT BRAIN W/O CONTRAST, May 30, 2017, 2:18. INDICATIONS : Altered mental status. MEDICAL HISTORY : Seizures. Diabetes mellitus type 2. Hypertension. CVA. SURGICAL HISTORY : Total knee replacement, right. Total knee replacement, left. Cholecystectomy. ENCOUNTER: Initial ACUITY: 2 day PAIN SCORE: Nonresponsive. LOCATION: Head TECHNIQUE: Multiplanar, multisequence MRI of the brain was performed without contrast. FINDINGS: CEREBRUM: The ventricles are normal for age. No evidence of midline shift, mass lesion, hemorrhage or acute in farction. No extraaxial fluid collections are seen. The pituitary gland and suprasellar cistern are normal in configuration. WHITE MATTER: Scattered areas of periventricular and subcortical white matter T2 prolongation, nonspecific POSTERIOR FOSSA: The cerebellum and brainstem are intact. The 4th ventricle is midline. The cerebellopontine angle is unremarkable. The cerebellar tonsils are normal in position. DIFFUSION IMAGING: No focal areas of restricted diffusion are seen. No evidence of acute infarction. EXTRACRANIAL: The visualized portions of the orbits and paranasal sinuses are unremarkable. CONCLUSION: Scattered white matter signal changes. The abundance of these is somewhat out of proportion to that e xpected for simple benign microvascular ischemic change. Correlation recommended Alexander Agarwal MD on May 30, 2017 at 10:51 Board Certified Radiologist. This report was verified electronically.
[2017-05-30] MEDS: PIPERACIL-TAZO 4.5 GM PREMIX 100 ML IV SCH ×3 (11:13→21:01)
--- NOTE | 2017-05-30 12:01 | HHI.PR ---
Subjective Remarks Follow up on patient with AMS. Patient seen and examined. Patient is awake but not alert. Minimal verbiage and what is said is incomprehensible. Does follow some simple commands. Phenytoin level is 41.6. BS 127. Afebrile. HR 96. BP 111/65. O2 sats 96%. Discussed with nursing staff at length, patient extremely lethargic and at times requiring sternal rub for response with brief periods of increased alertness. Objective Vitals Vital Signs Date Time Temp Pulse Resp B/P (MAP) Pulse Ox O2 Delivery O2 Flow Rate FiO2 05/30/17 08:52 94 104/70 (81) 100 05/30/17 07:30 96.7 94 18 123/75 (91) 97 05/30/17 07:21 89 20 117/65 (82) 99 05/30/17 06:53 89 18 141/65 (90) 100 Room Air 05/30/17 05:16 94 25 120/62 (81) 99 Room Air 05/30/17 01:36 98 18 115/77 (90) 98 Room Air 05/30/17 01:36 99 Nasal Cannula 2.00 05/30/17 01:36 99 22 98 2.00 05/30/17 01:31 98 22 107/75 (86) 99 I/O 05/29/17 05/29/17 05/29/17 05/30/17 05/30/17 05/30/17 07:00 15:00 23:00 07:00 15:00 23:00 Intake Total 50 ml Balance 50 ml IV Total 50 ml Result Diagram: 05/30/17 0151 05/30/17 0151 Imaging Last Impressions Head CT 05/30/178 Signed Impressions: Service Date/Time: Tuesday, May 30, 2017 02:18 - CONCLUSION: No acute intracranial abnormality is seen. There is mild increased density in the periventricular white matter likely related to small vessel ischemic change. Alexander Willis MD Chest X-Ray 05/30/17 0118 Signed Impressions: Service Date/Time: Tuesday, May 30, 2017 01:30 - CONCLUSION: Left medial base consolidation or atelectasis. Alexander Willis MD Brain MRI 05/30/17 0000 Signed Impressions: Service Date/Time: Tuesday, May 30, 2017 10:22 - CONCLUSION: Scattered white matter signal changes. The abundance of these is somewhat out of proportion to that expected for simple benign microvascular ischemic change. Correlation recommended Alexander Agrawal MD Objective Remarks GENERAL: This middle-aged lady, looks much older than her age. Awake but not alert. SKIN: Cool and dry. No rashes. HEAD: Atraumatic. Normocephalic. No temporal or scalp tenderness. EYES: No scleral icterus. No injection or drainage. ENT: Nose without bleeding or purulent drainage. Airway patent. MMM. NECK: Trachea midline. CARDIOVASCULAR: Tachycardic without murmurs, gallops, or rubs. RESPIRATORY: Poor effort. Clear to auscultation. Diminished at bases. GASTROINTESTINAL: Abdomen soft, non-tender, nondistended. No guarding. MUSCULOSKELETAL: Extremities without clubbing, cyanosis or edema. NEUROLOGICAL: Awake but not alert. Makes few audible noises but incomprehensible. Unable to adequately assess motor and sensory function of this time. Medications and IVs Active Medications Aspirin (Aspirin Chew) 81 mg DAILY CHEW; Start 05/30/17 at 09:00 Dextrose (D50w (Vial) Inj) 50 ml UNSCH PRN IV PUSH; Start 05/30/17 at 04:45 Dextrose/Sodium Chloride 1,000 ml @ 42 mls/hr [id number] IV Last administered on at 05:15; Admin Dose 42 MLS/HR; Start 05/30/17 at 04:45 Enoxaparin Sodium (Lovenox Inj) 40 mg Q24H SQ; Start 05/30/17 at 09:00 Ferrous Sulfate (Ferrous Sulfate) 325 mg DAILY PO; Start 05/30/17 at 09:00 Fluconazole (Diflucan) 100 mg DAILY PO; Start 05/30/17 at 09:00; Status Future Hold Folic Acid (Folate) 1 mg DAILY PO; Start 05/30/17 at 09:00 Glucagon (Glucagon Inj) 1 mg UNSCH PRN OTHER; Start 05/30/17 at 04:45 Lisinopril (Prinivil) 5 mg DAILY PO; Start 05/30/17 at 09:00 Lorazepam (Ativan Inj) 1 mg ONCE ONCE IV PUSH Last administered on 05/30/17at 02 :22; Admin Dose 1 MG; Start 05/30/17 at 01:45; Stop 05/30/17 at 01:46; Status DC Lorazepam (Ativan Inj) 2 mg STK-MED ONCE .ROUTE; Start 05/30/17 at 01:26; Stop 05/30/17 at 01:27; Status DC Metoprolol Succinate (Toprol Xl) 25 mg DAILY PO; Start 05/30/17 at 09:00 Naloxone HCl (Narcan Inj) 0.4 mg UNSCH PRN IV PUSH; Start 05/30/17 at 03:45 Pantoprazole Sodium (Protonix) 40 mg DAILY PO; Start 05/30/17 at 09:00 Piperacillin Sod/ Tazobactam Sod 50 ml @ 100 mls/hr ONCE ONCE IV Last administered on 05/30/17at 02:53; Admin Dose 100 MLS/HR; Start 05/30/17 at 02:30 ; Stop 05/30/17 at 02:59; Status DC Piperacillin Sod/ Tazobactam Sod 100 ml @ 200 mls/hr Q6H IV Last administered on 05/30/17at 11:13; Admin Dose 200 MLS/HR; Start 05/30/17 at 09:00 Sodium Chloride (NS Flush) 2 ml BID IV FLUSH; Start 05/30/17 at 09:00 Sodium Chloride (NS Flush) 2 ml UNSCH PRN IV FLUSH; Start 05/30/17 at 03:45 Sodium Chloride (NS Flush) 2 ml UNSCH PRN IVF; Start 05/30/17 at 01:30; Stop at 03:42; Status DC Thiamine HCl (Vitamin B1) 100 mg DAILY PO; Start 05/30/17 at 09:00 A/P Assessment and Plan AMS/Encephalopathy Hx of seizure disorders - possibly due to urosepsis and/or phenytoin toxicity. Dilantin dose recently increased 04/20/17. - Avoid all sedating medication - Consult neurology, appreciate recommendations - MRI and EEG ordered - Patient on Dilantin 200mg po TID at home. Phenytoin level elevated at 41.6. Medication not resumed at admission. Repeat level in a.m. - Neuro checks - telemetry - Seizure and fall precautions Acute urinary retention with 2500cc of urine drained after catheter placement UTI - Continue Jacob catheter - Tarted on IV Zosyn. Continue. - Await urine culture results. Suspect PNA/HCAP - CXR showing left medial base consolidation - continue on IV Zosyn - monitor respiratory status - IS, encourage hourly use while awake. Acapella. Duonebs. Leukocytosis - Secondary to above - monitor white count Transaminitis - hold Diflucan - Prior history of alcohol abuse - 03/2017 liver US unremarkable, hepatitis profile negative. Abdominal US obtained today shows fatty metamorphosis/hepatocellular disease. - monitor Sacral decubitus, stage IV, present on admission - wound care consulted DVT prophylaxis - Lovenox sq Discharge Planning Pending clinical improvement and Neurology clearance Iwona Brian May 30, 2017 12:01
[2017-05-30 14:10] LABS: MAGNESIUM 2.3 MG/DL (1.5-2.5); PHOSPHORUS 5.3 MG/DL (2.5-4.9)
--- NOTE | 2017-05-30 14:36 | PD.CONS ---
History of Present Illness Service Neurology Consult Requested By medical Reason for Consult confusion Primary Care Physician Bro Hayes MD History of Present Illness 61 y/o admitted for confusion from longterm. dilantin level 41 hx of resp failure, polysubstance abuse. admitted to [facility] 04/2017. was placed on dilantin for sz activity. glucose 76. mri brain moderate white matter changes. no acute infarct. being tx'd for uti by medical team and noted to be more alert after tx. Her CO2 was normal. medical chart reviewed. pt poor historian. Review of Systems ROS Limitations: Altered Mental Status, Poor Historian Past Family Social History Past Medical History Per longterm transfer notes: Seizure disorder CADstatus post [place] 2 Hypertension Hyperlipidemia Diabetes COPD Peripheral neuropathy GERD Insomnia Past Surgical History Cholecystectomy Bilateral total knee replacement Allergies: Coded Allergies: No Known Allergies (Unverified Allergy, Unknown, 05/30/17) Family History Unknown. However per EMR: Patient's mother had heart disease and father from complications of alcohol abuse. Social History Unknown. However per EMR: Patient has prior history of polysubstance abuse including alcohol, cocaine, and daily marijuana use. Was also a smoker. Review of Systems All other ROS: ROS reviewed as documented in chart Past Family Social History Allergies: Coded Allergies: No Known Allergies (Unverified Allergy, Unknown, 05/30/17) Active Ordered Medications Current Medications Medications (Trade) Dose Ordered Sig/Danae Route Start Time Stop Time Status Last Admin (NS Flush) 2 ml UNSCH PRN IV FLUSH 05/30/17 03:45 (NS Flush) 2 ml BID IV FLUSH 05/30/17 09:00 (Narcan Inj) 0.4 mg UNSCH PRN IV PUSH 05/30/17 03:45 Piperacillin Sod/ Tazobactam Sod 100 ml @ 200 mls/hr Q6H IV 05/30/17 09:00 05/30/17 11:13 (D50w (Vial) Inj) 50 ml UNSCH PRN IV PUSH 05/30/17 04:45 (Glucagon Inj) 1 mg UNSCH PRN OTHER 05/30/17 04:45 Dextrose/Sodium Chloride 1,000 ml @ 42 mls/hr [id number] IV 05/30/17 04:45 05/30/17 05:15 (Aspirin Chew) 81 mg DAILY CHEW 05/30/17 09:00 (Ferrous Sulfate) 325 mg DAILY PO 05/30/17 09:00 (Diflucan) 100 mg DAILY PO 05/30/17 09:00 Future Hold (Folate) 1 mg DAILY PO 05/30/17 09:00 (Prinivil) 5 mg DAILY PO 05/30/17 09:00 (Toprol Xl) 25 mg DAILY PO 05/30/17 09:00 (Protonix) 40 mg DAILY PO 05/30/17 09:00 (Vitamin B1) 100 mg DAILY PO 05/30/17 09:00 (Lovenox Inj) 40 mg Q24H SQ 05/30/17 09:00 Exam I&O / VS Vital Signs Date Time Temp Pulse Resp B/P (MAP) Pulse Ox O2 Delivery O2 Flow Rate FiO2 05/30/17 12:12 96.3 96 18 111/65 (80) 96 05/30/17 08:52 94 104/70 (81) 100 05/30/17 07:30 96.7 94 18 123/75 (91) 97 05/30/17 07:21 89 20 117/65 (82) 99 05/30/17 06:53 89 18 141/65 (90) 100 Room Air 05/30/17 05:16 94 25 120/62 (81) 99 Room Air 05/30/17 01:36 98 18 115/77 (90) 98 Room Air 05/30/17 01:36 99 Nasal Cannula 2.00 05/30/17 01:36 99 22 98 2.00 05/30/17 01:31 98 22 107/75 (86) 99 Exam Comments somnolent. arouses but falls back asleep, not following, not verbal, no gaze deviation, oou 3mm sluggish, neck supple, localizes with all 4 ext Review/Management Diagnosis/Plan: (1) Dilantin toxicity ICD Codes: T42.0X1A - Poisoning by hydantoin derivatives, accidental ( unintentional), initial encounter Status: Acute Plan: recs hold dilantin follow levels eeg tele follow exam restart dilantin once level is 15 or less (2) Encephalopathy, metabolic ICD Codes: G93.41 - Metabolic encephalopathy Status: Acute Plan: likely 2/2 dilantin toxicity (3) History of seizures ICD Codes: Z87.898 - Personal history of other specified conditions Status: Chronic (4) DM (diabetes mellitus) ICD Codes: E11.9 - Type 2 diabetes mellitus without complications Status: Chronic Problem Qualifiers (1) Dilantin toxicity: Maulik Chung MD May 30, 2017 14:36
--- NOTE | 2017-05-30 15:09 | RADRPT ---
EXAM DATE/TIME: 05/30/2017 14:03 [facility] COMPARISON: CT ABDOMEN & PELVIS W/O CONTRAST, December 31, 2015, 2:26. US KIDNEY/RENAL/BLADDER, March 20, 2017, 18:01. INDICATIONS : Abdominal pain. Abnormal labs. MEDICAL HISTORY : Myocardial infarction. Chronic obstructive pulmonary disease. Seizures. Ulcer. Arthritis. Diabetes. MRSA. SURGICAL HISTORY : Cholecystectomy. Knee replacement. ENCOUNTER: Initial ACUITY: 1 day PAIN SCORE: Nonresponsive. LOCATION: Bilateral Abdomen. MEASUREMENTS: LIVER: 16.9 cm length COMMON DUCT: 4 mm RIGHT KIDNEY: 13.3 x 5.6 x 5.4 cm LEFT KIDNEY: Non visualized SPLEEN: Minimal visualization AORTA: 2.6 cm maximal FINDINGS: LIVER: Increased echotexture homogeneous without focal lesion or ductal dilatation.. COMMON DUCT: No intraluminal mass or stone visualized. GALLBLADDER: Surgically absent. PANCREAS: The visualized portions are within normal limits. RIGHT KIDNEY: No hydronephrosis, stone or mass. LEFT KIDNEY: Not visualized. SPLEEN: No focal lesion. AORTA: Non aneurysmal. IVC: Within normal limits. CONCLUSION: Prominent borderline hepatomegaly with homogeneous increased echogenicity suggesting fatty metamorpho sis or hepatocellular disease. Surgical absence of gallbladder. Nonvisualized left kidney. Tyler Buckley MD on May 30, 2017 at 15:02 Board Certified Radiologist. This report was verified electronically.
[2017-05-30 16:27] LABS: AST (GOT) 90 U/L (15-37); BICARBONATE 23.6 MEQ/L (21.0-32.0); BLOOD UREA NITROGEN 39 MG/DL (7-18); CALCIUM 9.3 MG/DL (8.5-10.1); CHLORIDE 105 MEQ/L (98-107); CREATININE 0.58 MG/DL (0.50-1.00); GLOMERULAR FILTRATION RATE 128 ML/MIN (>89); GLUCOSE,RANDOM 115 MG/DL (74-106); SODIUM (NA) 138 MEQ/L (136-145)
[2017-05-30 16:31] LABS: ALKALINE PHOSPHATASE 919 U/L (45-117); ALT (GPT) 148 U/L (10-53); TOTAL BILIRUBIN ADULT 0.3 MG/DL (0.2-1.0); TOTAL PROTEIN 7.8 GM/DL (6.4-8.2)
[2017-05-30] MEDS: SODIUM CHLOR 0.9% 1000 ML INJ 1,000 ML IV SCH (18:33)
--- NOTE | 2017-05-30 18:41 | MG ---
cc: IJEOMA RAYO M.D. Sex: F [id number] INTRODUCTION: Seizures. Encephalopathy. MEDICATIONS: Lovenox. Aspirin. DESCRIPTION: Diffuse 5 hertz slowing is noted, bifrontal muscle artifact is seen, diffuse 6 Hz slowing is also noted. No hemisphere asymmetries are noted. No epileptiform or seizure activity is seen. Photic stimulation is performed without significant posterior driving. Patient is making noises and crying, some head movement seen, with no epileptiform or seizure activity is noted. Some head rocking is noted, that just correlates with muscle artifact. IMPRESSION: Diffuse theta slowing consistent with a mild diffuse encephalopathy. No focal abnormalities are noted. No seizure activity was seen. Some head rocking was seen but that just correlated with movement artifact. MD CHRISTINE Triplett/ANABELL /6:16 PM /6:20 PM
--- NOTE | 2017-05-30 19:00 | EKG ---
Date Performed: 05/30/2017 Time Performed: 01:49:08 PTAGE: 61 years EKG: Sinus rhythm POSSIBLE LEFT ATRIAL ENLARGEMENT LOW QRS VOLTAGE IN EXTREMITY LEADS Limb lead reversal. Repeat erik ng advised. When compared to previous tracing, there is probably no serial Change when allowing for t he limb lead reversal, but it is difficult To stay with certianty. ABNORMAL ECG PREVIOUS TRACING : 04/20/2017 22.53 DOCTOR: Alma Taylor Interpretating Date/Time 05/30/2017 18:58:42
[2017-05-31] VITALS (9 sets, daily range): BP systolic 108–132; BP diastolic 66–80; PULSE 90–106; RESP 18; TEMP 97.6–98.9; O2SAT 97–99
[2017-05-31] MEDS: PIPERACIL-TAZO 4.5 GM PREMIX 100 ML IV SCH ×4 (04:17→22:00)
[2017-05-31] MEDS ORDERED: RESP: ALBUTEROL 2.5 MG/IPRATROPIUM 0.5 MG NEB (PRN) NEB (08:00)
--- NOTE | 2017-05-31 08:02 | HHI.PR ---
Review/Management Diagnosis/Plan: (1) Dilantin toxicity ICD Codes: T42.0X1A - Poisoning by hydantoin derivatives, accidental ( unintentional), initial encounter Status: Acute Plan: recs mental status improved dilantin level pending eeg- no sz d/c planning to [place] restart dilantin at lower dose once level is 15 or less d/w rn (2) Encephalopathy, metabolic ICD Codes: G93.41 - Metabolic encephalopathy Status: Acute Plan: likely 2/2 dilantin toxicity (3) History of seizures ICD Codes: Z87.898 - Personal history of other specified conditions Status: Chronic (4) DM (diabetes mellitus) ICD Codes: E11.9 - Type 2 diabetes mellitus without complications Status: Chronic Subjective Subjective Comments No acute events reported No headache No chest pain No dyspnea Active Medications Current Medications Medications (Trade) Dose Ordered Sig/Danae Route Start Time Stop Time Status Last Admin (NS Flush) 2 ml UNSCH PRN IV FLUSH 05/30/17 03:45 (NS Flush) 2 ml BID IV FLUSH 05/30/17 09:00 (Narcan Inj) 0.4 mg UNSCH PRN IV PUSH 05/30/17 03:45 Piperacillin Sod/ Tazobactam Sod 100 ml @ 200 mls/hr Q6H IV 05/30/17 09:00 05/31/17 04:17 (D50w (Vial) Inj) 50 ml UNSCH PRN IV PUSH 05/30/17 04:45 (Glucagon Inj) 1 mg UNSCH PRN OTHER 05/30/17 04:45 (Aspirin Chew) 81 mg DAILY CHEW 05/30/17 09:00 (Ferrous Sulfate) 325 mg DAILY PO 05/30/17 09:00 (Diflucan) 100 mg DAILY PO 05/30/17 09:00 Future Hold (Folate) 1 mg DAILY PO 05/30/17 09:00 (Prinivil) 5 mg DAILY PO 05/30/17 09:00 (Toprol Xl) 25 mg DAILY PO 05/30/17 09:00 (Protonix) 40 mg DAILY PO 05/30/17 09:00 (Vitamin B1) 100 mg DAILY PO 05/30/17 09:00 (Lovenox Inj) 40 mg Q24H SQ 05/30/17 09:00 Sodium Chloride 1,000 ml @ 75 mls/hr [id number] IV 05/30/17 18:15 05/30/17 18:33 (Duoneb Neb) 1 ampule Q4HR NEB PRN NEB 05/31/17 08:00 UNV Allergies Allergies Coded Allergies No Known Allergies (Unverified Allergy, Unknown, 05/30/17) Review of Systems All other ROS: ROS reviewed as documented in chart Exam I&O / VS Vital Signs Date Time Temp Pulse Resp B/P (MAP) Pulse Ox O2 Delivery O2 Flow Rate FiO2 05/31/17 03:48 101 05/31/17 00:00 98.9 103 18 108/66 (80) 99 05/30/17 16:20 90 05/30/17 15:24 98.2 98 18 118/70 (86) 96 05/30/17 12:25 97 05/30/17 12:12 96.3 96 18 111/65 (80) 96 05/30/17 08:59 94 05/30/17 08:52 94 104/70 (81) 100 Exam Comments alert, ox 2, not to date, follows, dysarthric speech, mildly agitated, + nystagmus gris, no gaze deviation, ou 3mm sluggish, neck supple, localizes with all 4 ext Objective Micro and Labs Laboratory Tests Test 05/30/17 13:39 Blood Urea Nitrogen 39 Creatinine 0.58 Random Glucose 115 Total Protein 7.8 Albumin 3.0 Calcium Level 9.3 Alkaline Phosphatase 919 Aspartate Amino Transf (AST/SGOT) 90 Alanine Aminotransferase (ALT/SGPT) 148 Total Bilirubin 0.3 Sodium Level 138 Potassium Level 4.7 Chloride Level 105 Carbon Dioxide Level 23.6 Anion Gap 9 Estimat Glomerular Filtration Rate 128 Phosphorus Level 5.3 Magnesium Level 2.3 Ammonia 42 Thyroid Stimulating Hormone 3rd Gen 1.080 Date/Time Source Procedure Growth Status 05/30/17 17:33 Blood Peripheral Aerobic Blood Culture Pending Received 05/30/17 17:33 Blood Peripheral Anaerobic Blood Culture Pending Received 05/30/17 01:59 Nasal Washing Influenza Types A,B Antigen (SADIE) - Final NEGATIVE FOR FLU A AND B ANTIGEN.... Complete 05/30/17 01:59 Urine Catheterized Urine Urine Culture Pending Received Problem Qualifiers (1) Dilantin toxicity: Maulik Chung MD May 31, 2017 08:02
[2017-05-31] MEDS: SODIUM CHLORIDE 0.9% FLUSH 10 ML FLUSH IV FLUSH SCH ×2 (09:00→21:00)
[2017-05-31] MEDS: ASPIRIN 81 MG CHEW TAB CHEW SCH (10:06)
[2017-05-31] MEDS: LISINOPRIL 5 MG TAB PO SCH (10:06)
[2017-05-31] MEDS: ENOXAPARIN SODIUM 40 MG/0.4 ML SYRINGE SQ SCH (10:06)
[2017-05-31] MEDS: METOPROLOL SUCCINATE 25 MG EXTENDED RELEASE TAB PO SCH (10:07)
[2017-05-31] MEDS: THIAMINE HCL 100 MG TAB PO SCH (10:07)
[2017-05-31] MEDS: FERROUS SULFATE 325 MG (65 MG ELEMENTAL IRON) TAB PO SCH (10:07)
[2017-05-31] MEDS: PANTOPRAZOLE SOD 40 MG DELAYED RELEASE TAB PO SCH (10:07)
[2017-05-31] MEDS: SODIUM CHLOR 0.9% 1000 ML INJ 1,000 ML IV SCH (10:07)
[2017-05-31] MEDS: FOLIC ACID 1 MG TAB PO SCH (10:08)
--- NOTE | 2017-05-31 10:45 | PD.WCN.NOT ---
Wound Consult Description: Wound care consult ordered by Dr.Chisholm WEBSTER for sacrum Communicated with: Andreia BROOKS [facility] pod, Recommendation: 1) Reposition patient every 2 hours for comfort and offloading. 2) Cleanse Coccyx wound with normal saline pat dry. 3) Lightly pack wound with calcium alginate and cover with Gentle boarder dressing. Change dressing every 4 day or as needed for dislodgement or exudate. 4) Consult Wound care Physician for sharps debridement Additional Information: Patient was seen today in H pod by feature writer and Andreia BROOKS H pod.Patient alert in bed and is pleasantly confused at this time. Patient required max assistance to reposition to Right side.Assessment finding patient has Stage 4 pressure injury to sacrum measuring 3.8cm x 2.7cm x 2.8cm .Wound edges are well defined thickened and rolled under (Epibole). Joan wound intact and blanchable.Wound base is ~75% beefy red with ~25% mixed pink/white tissue.Small amount of serosanguineous drainage noted to old dressing no odor or signs and symptoms of active infection.Wound cleansed with normal saline pat dry skin prep applied to joan wound.Calcium alginate cut to fit wound base lightly packed into wound and covered with gentle boarder dressing.Patient tolerated wound care well . Repositioned patient to Left side.Patient would benefit from sharps debridement then Wound VAC placement.consult ordered for Wound physician. Francisco Javier Restrepo [facility] May 31, 2017 10:44
[2017-05-31 10:53] LABS: AUTOMATED NEUTROPHIL # 9.2 TH/MM3 (1.8-7.7); BASOPHIL # 0.1 TH/MM3 (0-0.2); BASOPHIL % 0.8 % (0.0-2.0); EOSINOPHIL # 0.2 TH/MM3 (0-0.4); EOSINOPHIL % 1.3 % (0.0-4.0); HEMATOCRIT 31.5 % (35.0-46.0); HEMOGLOBIN 10.5 GM/DL (11.6-15.3); LYMPHOCYTE # 2.1 TH/MM3 (1.0-4.8); MEAN CELL VOLUME 86.2 FL (80.0-100.0); MEAN CORPUSCULAR HEMOGLOBIN 28.6 PG (27.0-34.0); MEAN CORPUSCULAR HGB CONC 33.2 % (32.0-36.0); MEAN PLATELET VOLUME 7.2 FL (7.0-11.0); MONO % 7.7 % (0.0-8.0); NEUT % 73.2 % (16.0-70.0); PLATELET COUNT 368 TH/MM3 (150-450); RED BLOOD COUNT 3.65 MIL/MM3 (4.00-5.30); RED CELL DISTRIBUTION WIDTH 16.3 % (11.6-17.2); WHITE BLOOD COUNT 12.5 TH/MM3 (4.0-11.0)
[2017-05-31 11:16] LABS: ALBUMIN 2.7 GM/DL (3.4-5.0); ALT (GPT) 128 U/L (10-53); AST (GOT) 74 U/L (15-37); BICARBONATE 22.9 MEQ/L (21.0-32.0); BLOOD UREA NITROGEN 33 MG/DL (7-18); CALCIUM 8.9 MG/DL (8.5-10.1); CHLORIDE 106 MEQ/L (98-107); CREATININE 0.58 MG/DL (0.50-1.00); GLOMERULAR FILTRATION RATE 128 ML/MIN (>89); GLUCOSE,RANDOM 192 MG/DL (74-106); SODIUM (NA) 137 MEQ/L (136-145)
[2017-05-31 11:21] LABS: ALKALINE PHOSPHATASE 894 U/L (45-117); CHOLESTEROL 203 MG/DL (120-200); CHOLESTEROL/ HDL RATIO 2.89 RATIO; HDL CHOLESTEROL 70.1 MG/DL (40.0-60.0); LDL CHOLESTEROL 108 MG/DL (0-99); TOTAL BILIRUBIN ADULT 0.3 MG/DL (0.2-1.0); TOTAL PROTEIN 7.3 GM/DL (6.4-8.2); TRIGLYCERIDES 124 MG/DL (42-150)
[2017-05-31 11:28] LABS: PHENYTOIN (DILANTIN) 32.3 MCG/ML (10.0-20.0)
--- NOTE | 2017-05-31 13:15 | HHI.PR ---
Subjective Remarks The patient is in bed, she is more awake and alert. She is tearful at times. Denies having any pain at this time. No nausea or vomiting. Says she was able to eat. No headaches. No change in vision. No tremors. Objective Vitals Vital Signs Date Time Temp Pulse Resp B/P (MAP) Pulse Ox O2 Delivery O2 Flow Rate FiO2 05/31/17 12:13 91 05/31/17 11:54 98.0 92 18 130/80 (97) 99 05/31/17 10:38 Nasal Cannula 2.00 05/31/17 08:12 106 05/31/17 08:11 97.6 101 18 128/76 (93) 98 05/31/17 03:48 101 05/31/17 00:00 98.9 103 18 108/66 (80) 99 05/30/17 16:20 90 05/30/17 15:24 98.2 98 18 118/70 (86) 96 I/O 05/30/17 05/30/17 05/30/17 05/31/17 05/31/17 05/31/17 07:00 15:00 23:00 07:00 15:00 23:00 Intake Total 50 ml 200 ml 100 ml Output Total 775 ml Balance 50 ml -575 ml 100 ml IV Total 50 ml 200 ml 100 ml Output Urine Total 775 ml Result Diagram: 05/31/17 1039 05/31/17 1039 Imaging Last Impressions Head CT 05/30/17 0118 Signed Impressions: Service Date/Time: Tuesday, May 30, 2017 02:18 - CONCLUSION: No acute intracranial abnormality is seen. There is mild increased density in the periventricular white matter likely related to small vessel ischemic change. Alexander Willis MD Chest X-Ray 05/30/17 0118 Signed Impressions: Service Date/Time: Tuesday, May 30, 2017 01:30 - CONCLUSION: Left medial base consolidation or atelectasis. Alexander Willis MD Brain MRI 05/30/17 0000 Signed Impressions: Service Date/Time: Tuesday, May 30, 2017 10:22 - CONCLUSION: Scattered white matter signal changes. The abundance of these is somewhat out of proportion to that expected for simple benign microvascular ischemic change. Correlation recommended Alexander Agarwal MD Abdomen Ultrasound 05/30/17 0000 Signed Impressions: Service Date/Time: Tuesday, May 30, 2017 14:03 - CONCLUSION: Prominent borderline hepatomegaly with homogeneous increased echogenicity suggesting fatty metamorphosis or hepatocellular disease. Surgical absence of gallbladder. Nonvisualized left kidney. Tyler Buckley MD Objective Remarks GENERAL: This middle-aged lady, looks much older than her age. Awake but not alert. SKIN: stage 5 sacral decubitus ulcer present on admission HEAD: Atraumatic. Normocephalic. No temporal or scalp tenderness. EYES: No scleral icterus. No injection or drainage. ENT: Nose without bleeding or purulent drainage. Airway patent. MMM. NECK: Trachea midline. CARDIOVASCULAR: Tachycardic without murmurs, gallops, or rubs. RESPIRATORY: Poor effort. Clear to auscultation. Diminished at bases. GASTROINTESTINAL: Abdomen soft, non-tender, nondistended. No guarding. MUSCULOSKELETAL: Extremities without clubbing, cyanosis or edema. NEUROLOGICAL: Awake but not alert. Makes few audible noises but incomprehensible. Unable to adequately assess motor and sensory function of this time. A/P Assessment and Plan AMS/Encephalopathy Hx of seizure disorders Phenytoin toxicity. Hold phenytoin, monitor level trending down, restart when level, 15 per neuro - possibly due to urosepsis and/or phenytoin toxicity. Dilantin dose recently increased 04/20/17. - Avoid all sedating medication - Consult neurology, appreciate recommendations - MRI and EEG ordered - Patient on Dilantin 200mg po TID at home. Phenytoin level elevated at 41.6. Medication not resumed at admission. Repeat level in a.m. - Neuro checks - telemetry - Seizure and fall precautions Acute urinary retention with 2500cc of urine drained after catheter placement UTI - Continue Jacob catheter - Tarted on IV Zosyn. Continue. - Await urine culture results. Suspect PNA/HCAP - CXR showing left medial base consolidation - continue on IV Zosyn - monitor respiratory status - IS, encourage hourly use while awake. Acapella. Duonebs. Leukocytosis - Secondary to above - monitor white count Transaminitis - hold Diflucan - Prior history of alcohol abuse - 03/2017 liver US unremarkable, hepatitis profile negative. Abdominal US obtained today shows fatty metamorphosis/hepatocellular disease. - monitor Sacral decubitus, stage IV, present on admission - wound care consulted, appreciate recommendation - Reposition patient every 2 hours for comfort and offloading. - Cleanse Coccyx wound with normal saline pat dry. - Lightly pack wound with calcium alginate and cover with Gentle boarder dressing. Change dressing every 4 day or as needed for dislodgement or exudate. - Consult Wound care Physician for sharps debridement DVT prophylaxis - Lovenox sq Discharge Planning Pending clinical improvement and Neurology clearance DC when improved phenytoin level < 15. Can restart phenytoin if level< 15 per neuro Sonia Villar MD May 31, 2017 13:15
[2017-05-31] MEDS: INSULIN ASPART SUPPLEMENTAL SCALE SQ SCH (22:29)
[2017-06-01] VITALS (13 sets, daily range): BP systolic 142–166; BP diastolic 81–97; PULSE 83–97; RESP 15–20; TEMP 96.2–98; O2SAT 97–100
[2017-06-01] MEDS: PIPERACIL-TAZO 4.5 GM PREMIX 100 ML IV SCH ×3 (04:23→16:18)
[2017-06-01] MEDS: INSULIN ASPART SUPPLEMENTAL SCALE SQ SCH ×4 (08:52→22:09)
[2017-06-01] MEDS: ENOXAPARIN SODIUM 40 MG/0.4 ML SYRINGE SQ SCH (08:52)
[2017-06-01] MEDS: PANTOPRAZOLE SOD 40 MG DELAYED RELEASE TAB PO SCH (08:53)
[2017-06-01] MEDS: METOPROLOL SUCCINATE 25 MG EXTENDED RELEASE TAB PO SCH (08:53)
[2017-06-01] MEDS: FERROUS SULFATE 325 MG (65 MG ELEMENTAL IRON) TAB PO SCH (08:53)
[2017-06-01] MEDS: FOLIC ACID 1 MG TAB PO SCH (08:53)
[2017-06-01] MEDS: ASPIRIN 81 MG CHEW TAB CHEW SCH (08:53)
[2017-06-01] MEDS: THIAMINE HCL 100 MG TAB PO SCH (08:53)
[2017-06-01] MEDS: LISINOPRIL 5 MG TAB PO SCH (08:54)
[2017-06-01] MEDS: SODIUM CHLOR 0.9% 1000 ML INJ 1,000 ML IV SCH ×2 (08:54→10:15)
[2017-06-01] MEDS: SODIUM CHLORIDE 0.9% FLUSH 10 ML FLUSH IV FLUSH SCH ×2 (08:54→21:00)
--- NOTE | 2017-06-01 10:53 | HHI.PR ---
Subjective Remarks Seen earlier in the morning , eating breakfast being helped by the EXPERIENCED TRUCK DRIVER. In the bed, denies cp, sob, n/v/d/c. More awake and alert. Denei having any pain or sob. No n/v/d/c. No seizures No new motor deficit. Objective Vitals Vital Signs Date Time Temp Pulse Resp B/P (MAP) Pulse Ox O2 Delivery O2 Flow Rate FiO2 06/01/17 07:52 93 06/01/17 07:14 96.2 83 15 166/81 (109) 100 06/01/17 04:55 86 06/01/17 04:00 97.7 91 20 162/84 (110) 100 06/01/17 00:00 98.0 97 18 143/85 (104) 98 05/31/17 21:22 97.9 96 18 123/72 (89) 99 05/31/17 17:09 97 05/31/17 15:16 98.0 90 18 132/72 (92) 97 05/31/17 12:13 91 05/31/17 11:54 98.0 92 18 130/80 (97) 99 I/O 05/31/17 05/31/17 05/31/17 06/01/17 06/01/17 06/01/17 06:59 14:59 22:59 06:59 14:59 22:59 Intake Total 100 ml 1141 ml 200 ml Output Total 1200 ml 1100 ml 225 ml Balance 100 ml -59 ml -900 ml -225 ml Intake Oral 200 ml IV Total 100 ml 1141 ml Output Urine Total 1200 ml 1100 ml 225 ml # Bowel Movements 1 Result Diagram: 05/31/17 1039 05/31/17 1039 Imaging Last Impressions Head CT 05/30/178 Signed Impressions: Service Date/Time: Tuesday, May 30, 2017 02:18 - CONCLUSION: No acute intracranial abnormality is seen. There is mild increased density in the periventricular white matter likely related to small vessel ischemic change. Alexander Willis MD Chest X-Ray 05/30/178 Signed Impressions: Service Date/Time: Tuesday, May 30, 2017 01:30 - CONCLUSION: Left medial base consolidation or atelectasis. Alexander Willis MD Brain MRI 05/30/17 0000 Signed Impressions: Service Date/Time: Tuesday, May 30, 2017 10:22 - CONCLUSION: Scattered white matter signal changes. The abundance of these is somewhat out of proportion to that expected for simple benign microvascular ischemic change. Correlation recommended Alexander Agarwal MD Abdomen Ultrasound 05/30/17 0000 Signed Impressions: Service Date/Time: Tuesday, May 30, 2017 14:03 - CONCLUSION: Prominent borderline hepatomegaly with homogeneous increased echogenicity suggesting fatty metamorphosis or hepatocellular disease. Surgical absence of gallbladder. Nonvisualized left kidney. Tyler Buckley MD Objective Remarks GENERAL: This middle-aged lady, looks much older than her age. Awake but not alert. SKIN: stage 5 sacral decubitus ulcer present on admission HEAD: Atraumatic. Normocephalic. No temporal or scalp tenderness. EYES: No scleral icterus. No injection or drainage. ENT: Nose without bleeding or purulent drainage. Airway patent. MMM. NECK: Trachea midline. CARDIOVASCULAR: Tachycardic without murmurs, gallops, or rubs. RESPIRATORY: Poor effort. Clear to auscultation. Diminished at bases. GASTROINTESTINAL: Abdomen soft, non-tender, nondistended. No guarding. MUSCULOSKELETAL: Extremities without clubbing, cyanosis or edema. NEUROLOGICAL: Awake but not alert. Makes few audible noises but incomprehensible. Unable to adequately assess motor and sensory function of this time. A/P Assessment and Plan AMS/Encephalopathy Hx of seizure disorders Phenytoin toxicity. Hold phenytoin, monitor level trending down, restart when level, 15 per neuro - possibly due to urosepsis and/or phenytoin toxicity. Dilantin dose recently increased 04/20/17. - Avoid all sedating medication - Consult neurology, appreciate recommendations - MRI and EEG ordered - Patient on Dilantin 200mg po TID at home. Phenytoin level elevated at 41.6. Medication not resumed at admission. Repeat level in a.m. - Neuro checks - telemetry - Seizure and fall precautions Acute urinary retention with 2500cc of urine drained after catheter placement UTI - Continue Jacob catheter - Tarted on IV Zosyn. Continue. - Await urine culture results. Suspect PNA/HCAP - CXR showing left medial base consolidation - continue on IV Zosyn - monitor respiratory status - IS, encourage hourly use while awake. Acapella. Duonebs. Leukocytosis - Secondary to above - monitor white count Transaminitis - hold Diflucan - Prior history of alcohol abuse - 03/2017 liver US unremarkable, hepatitis profile negative. Abdominal US obtained today shows fatty metamorphosis/hepatocellular disease. - monitor Sacral decubitus, stage IV, present on admission - wound care consulted, appreciate recommendation - Reposition patient every 2 hours for comfort and offloading. - Cleanse Coccyx wound with normal saline pat dry. - Lightly pack wound with calcium alginate and cover with Gentle boarder dressing. Change dressing every 4 day or as needed for dislodgement or exudate. - Consult Wound care Physician for sharps debridement DVT prophylaxis - Lovenox sq Discharge Planning Pending clinical improvement and Neurology clearance DC when improved phenytoin level < 15. Can restart phenytoin if level< 15 per neuro Sonia Villar MD Jun 01, 2017 10:53
--- NOTE | 2017-06-01 13:13 | PD.WOU.CON ---
Patient Intake Chief Complaint Sacral Ulcer Consult Requested by Iwona Merchant Reason for Consult Wound care consult for sacral Ulcer Primary Care Physician Bro Hayes MD History of Present Illness Patient is a 61 year old AAF who is a resident of [facility] here for urosepsis. Wound care was consulted . Patient is a very poor historian so history was gleaned by reviewing notes from the EMR. Coded Allergies: No Known Allergies (Unverified Allergy, Unknown, 05/30/17) Vital Signs Date Time Temp Pulse Resp B/P (MAP) Pulse Ox O2 Delivery O2 Flow Rate FiO2 06/01/17 12:08 96.4 87 20 156/87 (110) 97 06/01/17 12:00 90 06/01/17 07:52 93 06/01/17 07:14 96.2 83 15 166/81 (109) 100 06/01/17 04:55 86 06/01/17 04:00 97.7 91 20 162/84 (110) 100 06/01/17 00:00 98.0 97 18 143/85 (104) 98 05/31/17 21:22 97.9 96 18 123/72 (89) 99 05/31/17 17:09 97 05/31/17 15:16 98.0 90 18 132/72 (92) 97 Wound Assessment Wound Information - Wound One 06/01/17: Wound Location: Sacral Wound Type: Pressure Ulcer Classification: FT- full thickness Pressure Stagin Wound Length: 4cm Wound Width: 1.5cm Wound Depth: 2.5cm Lab and Radiology Results Radiology Last Impressions Head CT 05/30/17 0118 Signed Impressions: Service Date/Time: Tuesday, May 30, 2017 02:18 - CONCLUSION: No acute intracranial abnormality is seen. There is mild increased density in the periventricular white matter likely related to small vessel ischemic change. Alexander Willis MD Chest X-Ray 05/30/17 0118 Signed Impressions: Service Date/Time: Tuesday, May 30, 2017 01:30 - CONCLUSION: Left medial base consolidation or atelectasis. Alexander Willis MD Brain MRI 05/30/17 0000 Signed Impressions: Service Date/Time: Tuesday, May 30, 2017 10:22 - CONCLUSION: Scattered white matter signal changes. The abundance of these is somewhat out of proportion to that expected for simple benign microvascular ischemic change. Correlation recommended Alexander Agarwal MD Abdomen Ultrasound 05/30/17 0000 Signed Impressions: Service Date/Time: Tuesday, May 30, 2017 14:03 - CONCLUSION: Prominent borderline hepatomegaly with homogeneous increased echogenicity suggesting fatty metamorphosis or hepatocellular disease. Surgical absence of gallbladder. Nonvisualized left kidney. MD Carlos A Ireland Karla A. MD Jun 01, 2017 13:13
[2017-06-02] MEDS: SODIUM CHLOR 0.9% 1000 ML INJ 1,000 ML IV SCH (00:20)
[2017-06-02 02:00] VITALS: BP 130/76; PULSE 100; O2SAT 100
[2017-06-02 06:00] VITALS: PULSE 96
[2017-06-02 08:00] VITALS: BP 121/77; PULSE 86; RESP 19; TEMP 98.5; O2SAT 98
[2017-06-02] MEDS: INSULIN ASPART SUPPLEMENTAL SCALE SQ SCH ×2 (08:00→12:00)
[2017-06-02] MEDS: SODIUM CHLORIDE 0.9% FLUSH 10 ML FLUSH IV FLUSH SCH (09:00)
[2017-06-02] MEDS: ENOXAPARIN SODIUM 40 MG/0.4 ML SYRINGE SQ SCH (09:00)
[2017-06-02] MEDS: FERROUS SULFATE 325 MG (65 MG ELEMENTAL IRON) TAB PO SCH (09:12)
[2017-06-02] MEDS: ASPIRIN 81 MG CHEW TAB CHEW SCH (09:12)
[2017-06-02] MEDS: METOPROLOL SUCCINATE 25 MG EXTENDED RELEASE TAB PO SCH (09:13)
[2017-06-02] MEDS: THIAMINE HCL 100 MG TAB PO SCH (09:13)
[2017-06-02] MEDS: PANTOPRAZOLE SOD 40 MG DELAYED RELEASE TAB PO SCH (09:13)
[2017-06-02] MEDS: FOLIC ACID 1 MG TAB PO SCH (09:13)
[2017-06-02] MEDS: LISINOPRIL 5 MG TAB PO SCH (09:13)
--- NOTE | 2017-06-02 09:49 | HHI.DS ---
Discharge Summary Admission Date May 30, 2017 at 03:34 Discharge Date: Jun 02, 2017 Admitting Diagnosis Urosepsis (1) Anemia ICD Code: D64.9 - Anemia, unspecified Status: Acute (2) Phenytoin toxicity ICD Code: T42.0X1A - Poisoning by hydantoin derivatives, accidental ( unintentional), initial encounter (3) History of seizures ICD Code: Z87.898 - Personal history of other specified conditions Status: Chronic (4) Encephalopathy, metabolic ICD Code: G93.41 - Metabolic encephalopathy Status: Acute Procedures none Brief History - From Admission History per [facility] transfer notes, ER physician communication, and review of medical records. [facility] was [facility] the [facility] because of altered mental status. Previous records reveal that patient has history of seizures and is on Dilantin. She had 1 ER visit on April 20, 2017 with seizure-like activity. Her Dilantin dosing was changed then. In the emergency room, patient was found to be altered with UA being abnormal. Admission was given to medical team for UTI with altered mental status. Upon my arrival, patient is quite lethargic. She will would moan to painful sternal rub. She is afebrile. She has obvious distended bladder on examination. Therefore bladder scan was ordered stat and Jacob catheter was placed. Patient drains more than 2500 mm of urine immediately. Her blood sugars on arrival was around 76. She is a diabetic. On stat recheck in ER upon my arrival the blood sugar was around 96. Dextrose 50 one ampule was given. After the above treatment, patient is more awake with eyes opening spontaneously and checking around. Her CO2 was normal. CBC/BMP: 05/31/17 1039 05/31/17 1039 Significant Findings Laboratory Tests Test 05/30/17 13:39 05/31/17 10:39 06/01/17 12:02 06/02/17 05:50 Blood Urea Nitrogen 39 MG/DL (7-18) 33 MG/DL (7-18) Random Glucose 115 MG/DL (74-106) 192 MG/DL (74-106) Albumin 3.0 GM/DL (3.4-5.0) 2.7 GM/DL (3.4-5.0) Alkaline Phosphatase 919 U/L (45-117) 894 U/L (45-117) Aspartate Amino Transf (AST/SGOT) 90 U/L (15-37) 74 U/L (15-37) Alanine Aminotransferase (ALT/SGPT) 148 U/L (10-53) 128 U/L (10-53) Phosphorus Level 5.3 MG/DL (2.5-4.9) Ammonia 42 MCMOL/L (11-32) White Blood Count 12.5 TH/MM3 (4.0-11.0) Red Blood Count 3.65 MIL/MM3 (4.00-5.30) Hemoglobin 10.5 GM/DL (11.6-15.3) Hematocrit 31.5 % (35.0-46.0) Neutrophils (%) (Auto) 73.2 % (16.0-70.0) Neutrophils # (Auto) 9.2 TH/MM3 (1.8-7.7) Monocytes # (Auto) 1.0 TH/MM3 (0-0.9) Cholesterol Level 203 MG/DL (120-200) LDL Cholesterol 108 MG/DL (0-99) HDL Cholesterol 70.1 MG/DL (40.0-60.0) Phenytoin (Dilantin) Level 32.3 MCG/ML (10.0-20.0) 24.0 MCG/ML (10.0-20.0) 22.8 MCG/ML (10.0-20.0) Imaging Last Impressions Head CT 05/30/17117 Signed Impressions: Service Date/Time: Tuesday, May 30, 2017 02:18 - CONCLUSION: No acute intracranial abnormality is seen. There is mild increased density in the periventricular white matter likely related to small vessel ischemic change. Alexander Willis MD Chest X-Ray 05/30/17117 Signed Impressions: Service Date/Time: Tuesday, May 30, 2017 01:30 - CONCLUSION: Left medial base consolidation or atelectasis. Alexander Willis MD Brain MRI 05/30/17 0000 Signed Impressions: Service Date/Time: Tuesday, May 30, 2017 10:22 - CONCLUSION: Scattered white matter signal changes. The abundance of these is somewhat out of proportion to that expected for simple benign microvascular ischemic change. Correlation recommended Alexander Agarwal MD Abdomen Ultrasound 05/30/17 0000 Signed Impressions: Service Date/Time: Tuesday, May 30, 2017 14:03 - CONCLUSION: Prominent borderline hepatomegaly with homogeneous increased echogenicity suggesting fatty metamorphosis or hepatocellular disease. Surgical absence of gallbladder. Nonvisualized left kidney. Tyler Buckley MD PE at Discharge GENERAL: This middle-aged lady, looks much older than her age. Awake but not alert. SKIN: stage 5 sacral decubitus ulcer present on admission HEAD: Atraumatic. Normocephalic. No temporal or scalp tenderness. EYES: No scleral icterus. No injection or drainage. ENT: Nose without bleeding or purulent drainage. Airway patent. MMM. NECK: Trachea midline. CARDIOVASCULAR: Tachycardic without murmurs, gallops, or rubs. RESPIRATORY: Poor effort. Clear to auscultation. Diminished at bases. GASTROINTESTINAL: Abdomen soft, non-tender, nondistended. No guarding. MUSCULOSKELETAL: Extremities without clubbing, cyanosis or edema. NEUROLOGICAL: Awake but not alert. Makes few audible noises but incomprehensible. Unable to adequately assess motor and sensory function of this time. Hospital Course AMS/Encephalopathy. Resolved Hx of seizure disorders Phenytoin toxicity. Hold phenytoin, monitor level trending down, restart when level, 15 per neuro. Patient to continue phenytoin at decreased dose and to follow up as OP with neuro - possibly due to urosepsis and/or phenytoin toxicity. Dilantin dose recently increased 04/20/17. - Avoid all sedating medication - Consult neurology, appreciate recommendations - MRI no acute findings, and EEG no seizures - Patient on Dilantin 200mg po TID at home. Phenytoin level elevated at 41.6. Medication not resumed at admission. Repeat level trending now. - Neuro checks - telemetry - Seizure and fall precautions Acute urinary retention with 2500cc of urine drained after catheter placement UTI - Continue Ajcob catheter - Tarted on IV Zosyn. Continue. - Await urine culture results. Suspect PNA/HCAP - CXR showing left medial base consolidation - continue on IV Zosyn - monitor respiratory status - IS, encourage hourly use while awake. Acapella. Duonebs. Leukocytosis - Secondary to above - monitor white count Transaminitis - hold Diflucan - Prior history of alcohol abuse - 03/2017 liver US unremarkable, hepatitis profile negative. Abdominal US obtained today shows fatty metamorphosis/hepatocellular disease. - monitor Sacral decubitus, stage IV, present on admission - wound care consulted, appreciate recommendation - Reposition patient every 2 hours for comfort and offloading. - Cleanse Coccyx wound with normal saline pat dry. - Lightly pack wound with calcium alginate and cover with Gentle boarder dressing. Change dressing every 4 day or as needed for dislodgement or exudate. - Consult Wound care Physician for sharps debridement DVT prophylaxis - Lovenox sq Discharge Planning Clinically improved at baseline. phenytoin trending down DC to SNF restart phenytoin at decreased dose per neuro. To follow up as OP with pcP and consultants. Pt Condition on Discharge: Stable Discharge Disposition: Discharge to SNF Discharge Time: > 30 minutes Discharge Instructions DIET: Follow Instructions for: Heart Healthy Diet, Diabetic Diet Activities you can perform: Regular-No Restrictions Follow up Referrals: Neurology - 1 Week PCP Follow-up - 1 Week Wound Care Clinic - 1 Week with Yee Strauss MD New Orders: DILANTIN (FREE) - 06/03/17 DILANTIN (FREE) - 06/04/17 PHENYTOIN (DILANTIN) - 06/05/17 Changed Medications: Phenytoin Extended (Phenytoin Extended) 100 Mg Cap 100 MG PO TID for Control Seizures, #90 CAP 0 Refills (Changed from: 200 MG) Patient with Phenytoin toxicity this admission 06/02/17 DO NOT RESUME Dilantin until Dilantin level is 15 OR LESS Continued Medications: Acetaminophen (Tylenol) 325 Mg Tab 650 MG PO HS PRN for PAIN 1 TO 10 AND/OR AGITATION, TAB 0 Refills Ascorbic Acid (Vitamin C) 250 Mg Chew 500 MG CHEW DAILY for Nutritional Supplement, #30 TAB 0 Refills Aspirin (Tgt Aspirin) 81 Mg Chw 81 MG CHEW DAILY for Blood Clot Prevention, #30 EA Ferrous Sulfate (Ferrous Sulfate) 325 Mg (65 Mg Iron) Tablet 325 MG PO DAILY for Nutritional Supplement, #30 TAB 0 Refills Folic Acid (Folic Acid) 1 Mg Tablet 1 MG PO DAILY for vitamin, #30 TAB Hydrocodone/Acetaminophen (Hydrocodone-Acetamin 5-325 mg) 5 Mg-325 Mg Tablet 1 TAB PO Q6HR PRN for PAIN SCALE 5 TO 10, #20 TAB (This prescription has been renewed) Insulin Aspart Inj (Novolog Inj) 1,000 Unit/10 Ml Vial 0 SQ DIRECTED for Blood Sugar Management, #10 ML 0 Refills Sliding Scale as directed. Insulin Detemir Inj (Levemir Inj) 1,000 unit/ 10 ML Vial 5 UNITS SQ DAILY for Blood Sugar Management for 30 Days, INJECTION Do not mix with any other Insulin. Ipratropium-Albuterol Neb (Duoneb) 0.5-2.5 Mg/3 Ml Neb 1 NEBULE INH Q4HR NEB for SHORTNESS OF BREATH, #120 NEBULE 0 Refills Lisinopril (Lisinopril) 5 Mg Tab 5 MG PO DAILY for Blood Pressure Management, #30 TAB 0 Refills Metoprolol Succinate ER 24 HR (Metoprolol Succinate ER 24 HR) 25 Mg Tab 25 MG PO DAILY, #30 TAB 0 Refills Mirtazapine (Mirtazapine) 15 Mg Tab 15 MG PO HS for Depression Control, #30 TAB 0 Refills Pantoprazole (Pantoprazole) 40 Mg Tab 40 MG PO DAILY for Reflux, #30 TAB Thiamine HCl (Gnp Vitamin B-1) 100 Mg Tab 100 MG PO DAILY for vitamin, #30 TAB Zinc Sulfate (Zinc Sulfate) 220 Mg Tab 220 MG PO DAILY for Nutritional Supplement, TAB 0 Refills Discontinued Medications: Ciprofloxacin (Cipro) 500 Mg Tab 500 MG PO BID for Infection, TAB 0 Refills Fluconazole (Diflucan) 100 Mg Tab 100 MG PO DAILY for Infection for 5 Days, #5 TAB 0 Refills Gabapentin (Gabapentin) 300 Mg Cap 300 MG PO BID, #60 CAP 0 Refills Insulin Detemir Inj (Levemir Inj) 1,000 unit/ 10 ML Vial 10 UNITS SQ DAILYAC for Blood Sugar Management, VIAL 0 Refills Do not mix with any other Insulin. Zolpidem (Ambien) 5 Mg Tab 5 MG PO HS PRN for INSOMNIA, TAB 0 Refills Sonia Villar MD Jun 02, 2017 09:49
[2017-06-02] MEDS ORDERED: PHEN100C PO (10:05)
[2017-06-02] MEDS ORDERED: HYDR-3516 PO (11:42)
--- NOTE | 2017-06-02 15:26 | HHI.PR ---
Subjective Remarks In bed appears in nad. She is improved. No n/v/d/c. No fever or chills. More awake and alert. Objective Vitals Vital Signs Date Time Temp Pulse Resp B/P (MAP) Pulse Ox O2 Delivery O2 Flow Rate FiO2 06/02/17 08:00 98.5 86 19 121/77 (92) 98 06/02/17 06:00 96 06/02/17 02:00 100 130/76 (94) 100 06/01/17 23:27 97.1 95 19 156/97 (116) 98 06/01/17 21:47 99 21 06/01/17 19:42 97.0 86 16 142/87 (105) 98 06/01/17 16:05 97.0 91 18 146/83 (104) 98 06/01/17 16:00 89 I/O 06/01/17 06/01/17 06/01/17 06/02/17 06/02/17 06/02/17 07:00 15:00 23:00 07:00 15:00 23:00 Intake Total 200 ml 400 ml Output Total 1100 ml 225 ml 1050 ml Balance -900 ml -225 ml -1050 ml 400 ml Intake Oral 200 ml 400 ml Output Urine Total 1100 ml 225 ml 1050 ml # Voids 1 # Bowel Movements 1 5 Result Diagram: 05/31/17 1039 05/31/17 1039 Imaging Last Impressions Head CT 05/30/17 0118 Signed Impressions: Service Date/Time: Tuesday, May 30, 2017 02:18 - CONCLUSION: No acute intracranial abnormality is seen. There is mild increased density in the periventricular white matter likely related to small vessel ischemic change. Alexander Willis MD Chest X-Ray 05/30/17 0118 Signed Impressions: Service Date/Time: Tuesday, May 30, 2017 01:30 - CONCLUSION: Left medial base consolidation or atelectasis. Alexander Willis MD Brain MRI 05/30/17 0000 Signed Impressions: Service Date/Time: Tuesday, May 30, 2017 10:22 - CONCLUSION: Scattered white matter signal changes. The abundance of these is somewhat out of proportion to that expected for simple benign microvascular ischemic change. Correlation recommended Alexander Agarwal MD Abdomen Ultrasound 05/30/17 0000 Signed Impressions: Service Date/Time: Tuesday, May 30, 2017 14:03 - CONCLUSION: Prominent borderline hepatomegaly with homogeneous increased echogenicity suggesting fatty metamorphosis or hepatocellular disease. Surgical absence of gallbladder. Nonvisualized left kidney. Tyler Buckley MD Objective Remarks GENERAL: This middle-aged lady, looks much older than her age. Awake but not alert. SKIN: stage 5 sacral decubitus ulcer present on admission HEAD: Atraumatic. Normocephalic. No temporal or scalp tenderness. EYES: No scleral icterus. No injection or drainage. ENT: Nose without bleeding or purulent drainage. Airway patent. MMM. NECK: Trachea midline. CARDIOVASCULAR: Tachycardic without murmurs, gallops, or rubs. RESPIRATORY: Poor effort. Clear to auscultation. Diminished at bases. GASTROINTESTINAL: Abdomen soft, non-tender, nondistended. No guarding. MUSCULOSKELETAL: Extremities without clubbing, cyanosis or edema. NEUROLOGICAL: Awake but not alert. Makes few audible noises but incomprehensible. Unable to adequately assess motor and sensory function of this time. A/P Assessment and Plan AMS/Encephalopathy. Resolved Hx of seizure disorders Phenytoin toxicity. Hold phenytoin, monitor level trending down, restart when level, 15 per neuro. Patient to continue phenytoin at decreased dose and to follow up as OP with neuro - possibly due to urosepsis and/or phenytoin toxicity. Dilantin dose recently increased 04/20/17. - Avoid all sedating medication - Consult neurology, appreciate recommendations - MRI no acute findings, and EEG no seizures - Patient on Dilantin 200mg po TID at home. Phenytoin level elevated at 41.6. Medication not resumed at admission. Repeat level trending now. - Neuro checks - telemetry - Seizure and fall precautions Acute urinary retention with 2500cc of urine drained after catheter placement UTI - Continue Jacob catheter - Tarted on IV Zosyn. Continue. - Await urine culture results. Suspect PNA/HCAP - CXR showing left medial base consolidation - continue on IV Zosyn - monitor respiratory status - IS, encourage hourly use while awake. Acapella. Duonebs. Leukocytosis - Secondary to above - monitor white count Transaminitis - hold Diflucan - Prior history of alcohol abuse - 03/2017 liver US unremarkable, hepatitis profile negative. Abdominal US obtained today shows fatty metamorphosis/hepatocellular disease. - monitor Sacral decubitus, stage IV, present on admission - wound care consulted, appreciate recommendation - Reposition patient every 2 hours for comfort and offloading. - Cleanse Coccyx wound with normal saline pat dry. - Lightly pack wound with calcium alginate and cover with Gentle boarder dressing. Change dressing every 4 day or as needed for dislodgement or exudate. - Consult Wound care Physician for sharps debridement DVT prophylaxis - Lovenox sq Discharge Planning Clinically improved at baseline. phenytoin trending down DC to SNF restart phenytoin at decreased dose per neuro. To follow up as OP with pcP and consultants. Sonia Villar MD Jun 02, 2017 15:26
== END 2017-06-02 17:57 | disposition home or self-care (01) ==
LOC: NEPE 01:14 → NEDA 03:34 → INTOOBSV 03:34 → NEPHCDU 07:51
PROVIDERS: ADMIT Hospitalist; ATTEND Hospitalist
DX: G93.41 Metabolic encephalopathy (principal); T42.0X1A Poisoning by hydantoin derivatives, accidental (unintentional), initial encounter; G40.909 Epilepsy, unspecified, not intractable, without status epilepticus; N39.0 Urinary tract infection, site not specified; D64.9 Anemia, unspecified; I10 Essential (primary) hypertension; J44.9 Chronic obstructive pulmonary disease, unspecified; I25.2 Old myocardial infarction; E78.5 Hyperlipidemia, unspecified; R74.0 Nonspecific elevation of levels of transaminase and lactic acid dehydrogenase [LDH]; D72.829 Elevated white blood cell count, unspecified; E11.9 Type 2 diabetes mellitus without complications; G47.00 Insomnia, unspecified; G62.9 Polyneuropathy, unspecified; I21.9 Acute myocardial infarction, unspecified; K21.9 Gastro-esophageal reflux disease without esophagitis; J98.11 Atelectasis; L89.159 Pressure ulcer of sacral region, unspecified stage; M19.90 Unspecified osteoarthritis, unspecified site; Z86.73 Personal history of transient ischemic attack (TIA), and cerebral infarction without residual deficits; Z87.891 Personal history of nicotine dependence; Z96.653 Presence of artificial knee joint, bilateral; Z79.84 Long term (current) use of oral hypoglycemic drugs
CPT/HCPCS: 36600; 70450; 70551; 71045; 76700; 80053; 80061; 80184; 80185; 81001; 82140; 82550; 82805; 82948; 83605; 83690; 83735; 84100; 84443; 84484; 85025; 85610; 85730; 87040; 87086; 87804; 92610; 93005; 94150; 94664; 94667; 94668; 95819; 96361; 96365; 96366; 96372; 96375; 97161; 99285; G0378; G8987; G8988; G8996; G8997; G8998; J1650; J1815; J2060; J2543; J7030; J7042; 96374

== ENCOUNTER 2017-06-24 19:32 | Inpatient (IN) | payer MEDICARE, MEDICAID ==
[~2017-06-24] VITALS: Ht 167.6 cm; Wt 75.0 kg
[~2017-06-24 19:32] MED LIST changes: -DILA100C PO; +FERR325T18 PO; -GABA100C4 PO; -LEVA750T9 PO; -MACR100C2 PO; +MIRTA15 PO; +PHEN100C PO; +TYLE325T PO; -VALP250C PO; -VENTAER INH
--- NOTE | 2017-06-24 19:44 | PD ---
HPI Chief Complaint: altered mental status Time Seen by Provider: 19:44 Travel History International Travel<30 days: No Contact w/Intl Traveler<30days: No Traveled to known affect area: No History of Present Illness HPI 61-year-old female came to the emergency room sent from the alf for change in her mental status. Patient has also fallen about 3 times in past couple days as per the documentation. Patient is awake but seems still confused and not a reliable historian. History was solely obtained from the paperwork that came from the alf. Vital signs are stable. As per the report patient also has a sacral decubitus. PFSH Past Medical History Narrative Medical List of her past medical, surgical, social and family history is reviewed from the nursing note. Arthritis: Yes Asthma: Yes Cardiovascular Problems: Yes ([place] X2 ) High Cholesterol: No Chest Pain: Yes Congestive Heart Failure: No COPD: Yes Cerebrovascular Accident: No Diabetes: Yes Diminished Hearing: Yes (DIMINISHED HEARING L EAR) Gastrointestinal Disorders: Yes Genitourinary: No Hypertension: Yes Immune Disorder: No Implanted Vascular Access Dvce: Yes Musculoskeletal: Yes Neurologic: Yes Psychiatric: No Reproductive: No Respiratory: Yes Migraines: No Myocardial Infarction: Yes (X2) Seizures: Yes Sleep Apnea: No Ulcer: Yes : 9 Para: 9 Miscarriage: 0 : 0 Past Surgical History Abdominal Surgery: No AICD: No Arteriovenous Shunt: No Cardiac Surgery: No Section: No Cholecystectomy: Yes Ear Surgery: No Endocrine Surgery: No Eye Surgery: No Genitourinary Surgery: No Gynecologic Surgery: No Insulin Pump: No Joint Replacement: Yes (BILAT TOTAL KNEE REPLACEMENT) Oral Surgery: No Pacemaker: No Thoracic Surgery: No Other Surgery: Yes Social History Alcohol Use: No (QUIT 8 YEARS AGO) Tobacco Use: No (2 PPD) Substance Use: No (UTO) Allergies-Medications (Allergen,Severity, Reaction): Coded Allergies: No Known Allergies (Unverified Allergy, Unknown, 05/30/17) Comments No known drug allergies. Reported Meds & Prescriptions Reported Meds & Active Scripts Active Hydrocodone-Acetamin 5-325 mg (Hydrocodone/Acetaminophen) 5 Mg-325 Mg Tablet 1 Tab PO Q6HR PRN Lisinopril 5 Mg Tab 5 Mg PO DAILY Gnp Vitamin B-1 (Thiamine HCl) 100 Mg Tab 100 Mg PO DAILY Folic Acid 1 Mg Tablet 1 Mg PO DAILY Levemir Inj (Insulin Detemir) 1,000 unit/ 10 ML Vial 5 Units SQ DAILY 30 Days Do not mix with any other Insulin. Pantoprazole (Pantoprazole Sodium) 40 Mg Tab 40 Mg PO DAILY Tgt Aspirin (Aspirin) 81 Mg Chw 81 Mg CHEW DAILY Reported Tylenol (Acetaminophen) 325 Mg Tab 650 Mg PO Q6H PRN Phenytoin Extended 300 Mg Cap 300 Mg PO BID Phenytoin Extended 100 Mg Cap 100 Mg PO DAILY Duoneb (Ipratropium-Albuterol Neb) 0.5-2.5 Mg/3 Ml Neb 1 Nebule INH Q4HR NEB Mirtazapine 15 Mg Tab 15 Mg PO HS Ferrous Sulfate 325 Mg (65 Mg Iron) Tablet 325 Mg PO DAILY Novolog Inj (Insulin Aspart) 1,000 Unit/10 Ml Vial 0 SQ DIRECTED Sliding Scale as directed. Vitamin C (Ascorbic Acid) 250 Mg Chew 500 Mg CHEW DAILY Zinc Sulfate 220 Mg Tab 220 Mg PO DAILY Metoprolol Succinate ER 24 HR (Metoprolol Succinate) 25 Mg Tab 25 Mg PO DAILY Narrative Medication List of her home medications reviewed from the nursing note. Review of Systems ROS Limitations: Altered Mental Status Except as stated in HPI: all other systems reviewed are Neg Physical Exam Narrative GENERAL: Awake, confused, slurred speech SKIN: Focused skin assessment warm/dry. HEAD: Atraumatic. Normocephalic. EYES: Pupils equal and round. No scleral icterus. No injection or drainage. ENT: No nasal bleeding or discharge. Mucous membranes pink and moist. NECK: Trachea midline. No JVD. CARDIOVASCULAR: Regular rate and rhythm. No murmur appreciated. RESPIRATORY: No accessory muscle use. Clear to auscultation. Breath sounds equal bilaterally. GASTROINTESTINAL: Abdomen soft, non-tender, nondistended. Hepatic and splenic margins not palpable. MUSCULOSKELETAL: No obvious deformities. No clubbing. No cyanosis. No edema. NEUROLOGICAL: Confused. No obvious cranial nerve deficits. Motor grossly within normal limits. Slurred speech. PSYCHIATRIC: Appropriate mood and affect; insight and judgment normal. Data Data Last Documented VS Vital Signs Date Time Temp Pulse Resp B/P (MAP) Pulse Ox O2 Delivery O2 Flow Rate FiO2 06/24/17 21:53 98.3 101 20 99 Room Air 06/24/17 19:47 129/81 (97) Orders Orders Electrocardiogram (06/24/17 19:52) Ammonia (06/24/17 19:52) Complete Blood Count With Diff (06/24/17:52) Comprehensive Metabolic Panel (06/24/17:52) Creatine Kinase (Cpk) (06/24/17:52) Prothrombin Time / Inr (Pt) (06/24/17:52) Troponin I (06/24/17:) Thyroid Stimulating Hormone (06/24/17:52) Urinalysis - C+S If Indicated (06/24/17:52) Lactic Acid Sepsis Protocol (06/24/17:52) Blood Culture (06/24/17:52) Chest, Single Ap (06/24/17:52) Ct Brain W/O Iv Contrast(Rout) (06/24/17:52) Blood Glucose (06/24/17:) Ecg Monitoring (06/24/17:) Iv Access Insert/Monitor (06/24/17:) Oximetry (06/24/17:) Sodium Chloride 0.9% Flush (Ns Flush) (06/24/17 20:00) Sodium Chlor 0.9% 1000 Ml Inj (Ns 1000 M (06/24/17:52) Phenytoin (Dilantin) (06/24/17:52) ^ Straight Catheter (06/24/17:52) Urine Culture (06/24/17 20:28) Ceftriaxone Inj (Rocephin Inj) (06/24/17 21:15) Nitrofurantoin Monohyd Macrocr (Macrobid (06/24/17 21:15) Lorazepam Inj (Ativan Inj) (06/24/17 23:45) Admit Order (Ed Use Only) (06/24/17 23:51) Labs Laboratory Tests Test 06/24/17 20:15 06/24/17 20:24 06/24/17 20:28 White Blood Count 11.7 TH/MM3 Red Blood Count 3.79 MIL/MM3 Hemoglobin 11.0 GM/DL Hematocrit 32.3 % Mean Corpuscular Volume 85.1 FL Mean Corpuscular Hemoglobin 29.1 PG Mean Corpuscular Hemoglobin Concent 34.2 % Red Cell Distribution Width 17.7 % Platelet Count 450 TH/MM3 Mean Platelet Volume 7.0 FL Neutrophils (%) (Auto) 57.2 % Lymphocytes (%) (Auto) 30.3 % Monocytes (%) (Auto) 9.6 % Eosinophils (%) (Auto) 2.0 % Basophils (%) (Auto) 0.9 % Neutrophils # (Auto) 6.7 TH/MM3 Lymphocytes # (Auto) 3.5 TH/MM3 Monocytes # (Auto) 1.1 TH/MM3 Eosinophils # (Auto) 0.2 TH/MM3 Basophils # (Auto) 0.1 TH/MM3 CBC Comment DIFF FINAL Differential Comment Prothrombin Time 9.6 SEC Prothromb Time International Ratio 0.9 RATIO Blood Urea Nitrogen 32 MG/DL Creatinine 0.72 MG/DL Random Glucose 90 MG/DL Total Protein 7.0 GM/DL Albumin 2.7 GM/DL Calcium Level 8.8 MG/DL Alkaline Phosphatase 423 U/L Aspartate Amino Transf (AST/SGOT) 62 U/L Alanine Aminotransferase (ALT/SGPT) 118 U/L Total Bilirubin LESS THAN 0.1 MG/DL Sodium Level 143 MEQ/L Potassium Level 3.8 MEQ/L Chloride Level 107 MEQ/L Carbon Dioxide Level 28.2 MEQ/L Anion Gap 8 MEQ/L Estimat Glomerular Filtration Rate 100 ML/MIN Total Creatine Kinase 49 U/L Troponin I LESS THAN 0.02 NG/ML Thyroid Stimulating Hormone 3rd Gen 1.260 uIU/ML Phenytoin (Dilantin) Level 28.9 MCG/ML Lactic Acid Level 1.9 mmol/L Ammonia 32 MCMOL/L Urine Color YELLOW Urine Turbidity CLOUDY Urine pH 5.5 Urine Specific [place] 1.020 Urine Protein 30 mg/dL Urine Glucose (UA) NEG mg/dL Urine Ketones NEG mg/dL Urine Occult Blood MOD Urine Nitrite NEG Urine Bilirubin NEG Urine Urobilinogen LESS THAN 2.0 MG/DL Urine Leukocyte Esterase LARGE Urine RBC 62 /hpf Urine WBC /hpf Urine WBC Clumps MANY Urine Bacteria MANY /hpf Microscopic Urinalysis Comment CATH-CULTURE IND Urine Opiates Screen NEG Urine Barbiturates Screen NEG Urine Amphetamines Screen NEG Urine Benzodiazepines Screen NEG Urine Cocaine Screen NEG Urine Cannabinoids Screen NEG MDM Medical Decision Making Medical Screen Exam Complete: Yes Emergency Medical Condition: Yes Medical Record Reviewed: Yes Interpretation(s) Twelve-lead EKG was reviewed by me. Normal sinus rhythm, normal axis, tachycardia, nonspecific ST-T wave changes. Heart rate of 105 bpm. Differential Diagnosis Sepsis, UTI, intracranial bleed, electrolyte abnormality Narrative Course 9:39 PM most of the blood test results are back. Patient's phenytoin level is high. UA suggestive of UTI. I have ordered Rocephin and Macrobid for her UTI. Blood culture has been ordered as well. Awaiting for a head CT. Patient will require admission at this point looking at the situation. She seems quite confused. I have not seen the patient in the past and do not know her baseline mental status. She has been constantly moaning in the room. 11:[address] scan of the head is still not done. I was just told by the solid waste technician that the patient has been uncooperative. This was not conveyed to me by either the radiocommunications technician or the nurse prior to this. At this point I would prefer to admit this patient. Awaiting for the hospitalist call back. Procedures EKG Prior to Arrival: No Diagnosis Primary Impression: Altered mental status Qualified Codes: R41.0 - Disorientation, unspecified Additional Impressions: Phenytoin toxicity Qualified Codes: T42.0X1A - Poisoning by hydantoin derivatives, accidental ( unintentional), initial encounter UTI (urinary tract infection) Qualified Codes: N39.0 - Urinary tract infection, site not specified Admitting Information Admitting Physician Requests: Ekaterina Lund MD Jun 24, 2017 19:44
[2017-06-24 19:47] VITALS: BP 129/81; PULSE 104; RESP 18; O2SAT 99
[2017-06-24] MEDS ORDERED: SODIUM CHLOR 0.9% 1000 ML INJ 1,000 ML IV SCH (19:52)
[2017-06-24 19:57] VITALS: O2SAT 99
[2017-06-24] MEDS ORDERED: SODIUM CHLORIDE 0.9% FLUSH 10 ML FLUSH IV FLUSH PRN (20:00)
--- NOTE | 2017-06-24 20:34 | RADRPT ---
EXAM DATE/TIME: 06/24/2017 20:06 [facility] COMPARISON: CHEST SINGLE AP, May 30, 2017, 1:30. INDICATIONS : Syncope. MEDICAL HISTORY : Myocardial infarction. Chronic obstructive pulmonary disease. Seizures. Ulcer. Arthritis. Diabetes. M RSA. SURGICAL HISTORY : Cholecystectomy. Knee replacement. ENCOUNTER: Initial ACUITY: 1 day PAIN SCORE: Non-responsive. LOCATION: Bilateral chest FINDINGS: There is mild motion degradation of the image. There is a new opacity in the right lower lung charac teristic of subsegmental consolidation measuring 2 cm in size. No lung is clear when taking into acc ount the motion degradation. No evidence of pneumothorax. The heart is normal in size. CONCLUSION: Subsegmental consolidative infiltrate right lower lung. Guicho Villalobos MD on June 24, 2017 at 20:30 Board Certified Radiologist. This report was verified electronically.
[2017-06-24 20:53] LABS: BACTERIA, URINE MANY /hpf; BILIRUBIN, URINE NEG (NEG); BLOOD, URINE MOD (NEG); GLUCOSE,URINE NEG (NEG); KETONE, URINE NEG (NEG); NITRITE,URINE NEG (NEG); PH, URINE 5.5 (5.0-8.5); URINE COLOR YELLOW (YELLW/STRAW); URINE LEUKOCYTE ESTERASE LARGE (NEG); WHITE BLOOD CELL CLUMPS MANY
[2017-06-24 20:58] LABS: AUTOMATED NEUTROPHIL # 6.7 TH/MM3 (1.8-7.7); BASOPHIL # 0.1 TH/MM3 (0-0.2); BASOPHIL % 0.9 % (0.0-2.0); EOSINOPHIL # 0.2 TH/MM3 (0-0.4); HEMATOCRIT 32.3 % (35.0-46.0); LYMPH % 30.3 % (9.0-44.0); LYMPHOCYTE # 3.5 TH/MM3 (1.0-4.8); MEAN CELL VOLUME 85.1 FL (80.0-100.0); MEAN CORPUSCULAR HEMOGLOBIN 29.1 PG (27.0-34.0); MEAN CORPUSCULAR HGB CONC 34.2 % (32.0-36.0); MONO % 9.6 % (0.0-8.0); MONOCYTE # 1.1 TH/MM3 (0-0.9); NEUT % 57.2 % (16.0-70.0); PLATELET COUNT 450 TH/MM3 (150-450); RED BLOOD COUNT 3.79 MIL/MM3 (4.00-5.30); RED CELL DISTRIBUTION WIDTH 17.7 % (11.6-17.2); WHITE BLOOD COUNT 11.7 TH/MM3 (4.0-11.0)
[2017-06-24 21:14] LABS: ALBUMIN 2.7 GM/DL (3.4-5.0); ALT (GPT) 118 U/L (10-53); AST (GOT) 62 U/L (15-37); BICARBONATE 28.2 MEQ/L (21.0-32.0); BLOOD UREA NITROGEN 32 MG/DL (7-18); CALCIUM 8.8 MG/DL (8.5-10.1); CHLORIDE 107 MEQ/L (98-107); CREATININE 0.72 MG/DL (0.50-1.00); GLOMERULAR FILTRATION RATE 100 ML/MIN (>89); GLUCOSE,RANDOM 90 MG/DL (74-106); SODIUM (NA) 143 MEQ/L (136-145)
[2017-06-24] MEDS ORDERED: cefTRIAXone INJ 1,000 MG in SODIUM CHLORIDE 0.9% INJ 100 ML IV ONE (21:15)
[2017-06-24] MEDS ORDERED: NITROFURANTOIN MONOHYD MACROCR 100 MG CAP PO ONE (21:15)
[2017-06-24 21:24] LABS: ALKALINE PHOSPHATASE 423 U/L (45-117); INTERNATIONAL NORMALIZED RATIO 0.9 RATIO; PHENYTOIN (DILANTIN) 28.9 MCG/ML (10.0-20.0); PROTHROMBIN TIME - PATIENT 9.6 SEC (9.8-11.6); TOTAL BILIRUBIN ADULT LESS THAN 0.1 MG/DL (0.2-1.0); TROPONIN I LESS THAN 0.02 NG/ML (0.02-0.05)
[2017-06-24] MEDS ORDERED: PHEN100C PO (21:40)
[2017-06-24] MEDS ORDERED: PHEN300C3 PO (21:40)
[2017-06-24] MEDS ORDERED: TYLE325T PO (21:40)
[2017-06-24 21:53] VITALS: PULSE 101; RESP 20; TEMP 98.3; O2SAT 99
[2017-06-24] MEDS ORDERED: LORazepam 2 MG/ML VIAL IV PUSH ONE (23:45)
[2017-06-25] MEDS ORDERED: RESP: ALBUTEROL 2.5 MG/IPRATROPIUM 0.5 MG NEB (PRN) NEB (00:15)
[2017-06-25] MEDS ORDERED: ONDANSETRON HCL 4 MG/2 ML VIAL IVP PRN (00:15)
[2017-06-25] MEDS ORDERED: SODIUM CHLORIDE 0.9% FLUSH 10 ML FLUSH IV FLUSH PRN (00:15)
[2017-06-25] MEDS ORDERED: BISACODYL 10 MG SUPP RECTAL PRN (00:15)
[2017-06-25] MEDS ORDERED: GLUCAGON 1 MG/ML VIAL OTHER PRN (00:15)
[2017-06-25] MEDS ORDERED: SENNOSIDES 8.6 MG TAB PO PRN (00:15)
[2017-06-25] MEDS ORDERED: LORazepam 2 MG/ML VIAL IV PUSH PRN (00:15)
[2017-06-25] MEDS ORDERED: LACTULOSE SYRUP 20 GM/30 ML CUP PO PRN (00:15)
[2017-06-25] MEDS ORDERED: DEXTROSE 50% IN WATER 50 ML VIAL(D50) IV PUSH PRN (00:15)
[2017-06-25] MEDS ORDERED: ACETAMINOPHEN 325 MG TAB PO PRN (00:15)
[2017-06-25] MEDS ORDERED: MAGNESIUM HYDROXIDE SUSP 30 ML CUP PO PRN (00:15)
--- NOTE | 2017-06-25 00:38 | EKG ---
Date Performed: 06/24/2017 Time Performed: 19:41:22 PTAGE: 61 years EKG: SINUS TACHYCARDIA NONSPECIFIC T-WAVE ABNORMALITY ABNORMAL RHYTHM ECG INTERPRETATION BASED O N A DEFAULT AGE OF 41 YEARS PREVIOUS TRACING : 05/30/2017 01.49 Compared to prior tracing, rate has increased, previ ous has limb lead reversal which makes comparison difficult DOCTOR: Yoni Brambila Interpretating Date/Time 06/25/2017 00:36:38
--- NOTE | 2017-06-25 00:40 | RADRPT ---
EXAM DATE/TIME: 06/25/2017 00:23 [facility] COMPARISON: CT BRAIN W/O CONTRAST, May 30, 2017, 2:18. INDICATIONS : Altered mental status. RADIATION DOSE: 56.35 CTDIvol (mGy) ; Patient motion MEDICAL HISTORY : Seizures. Hypertension. Myocardial infarction.Diabetes. SURGICAL HISTORY : Cholecystectomy. ENCOUNTER: Initial ACUITY: 1 day PAIN SCALE: Non-responsive LOCATION: cranial TECHNIQUE: Multiple contiguous axial images were obtained of the head. Using automated exposure control and adj ustment of the mA and/or kV according to patient size, radiation dose was kept as low as reasonably a chievable to obtain optimal diagnostic quality images. DICOM format image data is available electro nically for review and comparison. FINDINGS: CEREBRUM: The ventricles are normal for age. No evidence of midline shift, mass lesion, hemorrhage or acute in farction. No extra-axial fluid collections are seen. POSTERIOR FOSSA: The cerebellum and brainstem are intact. The 4th ventricle is midline. The cerebellopontine angle i s unremarkable. EXTRACRANIAL: The visualized portion of the orbits is intact. SKULL: The calvaria is intact. No evidence of skull fracture. CONCLUSION: 1. No acute findings. No significant change from May 2017. Carlito Kruse MD on June 25, 2017 at 0:37 Board Certified Radiologist. This report was verified electronically.
--- NOTE | 2017-06-25 01:00 | HHI.HP ---
[facility]ician Bro Hayes MD Admission Diagnosis AMS, UTI, phenytoin toxicity Diagnoses: (1) Encephalopathy Diagnosis: Principal (2) PNA (pneumonia) Diagnosis: Principal (3) UTI (urinary tract infection) Diagnosis: Principal (4) Phenytoin toxicity Diagnosis: Principal (5) DM (diabetes mellitus) Diagnosis: Principal Travel History International Travel<30 Days: No Contact w/Intl Traveler <30 Da: No Traveled to Known Affected Are: No History of Present Illness This is a 61-year-old female with a PMH of COPD, HTN, DM, Cocaine Abuse and Tobacco Abuse who was sent to the ER from SNF secondary to AMS. Per report, pt also noted to have multiple falls throughout the day. Pt unable to provide any history. While in ER, pt significantly agitated, combative and refusing treatment, s/p Ativan. On arrival, BP 129/81, HR 104, O2 sat 99% on RA, Afebrile. W WBC 11.7. Chemistry essentially unremarkable. LFTs elevated similar comparison to previous. Lactic Acid 1.9. Troponin negative. INR 0.9. UA positive for UTI. Phenytoin Level elevated at 28.9. CXR with consolidation right lower lung. CT Head negative. S/p Rocephin/Macrobid in ER. Review of Systems Except as stated in HPI: all other systems reviewed are Neg ROS: Unable to obtain from patient secondary to AMS and sedation. Past Family Social History Past Medical History PMH: COPD, HTN, DM, Cocaine Abuse and Tobacco Abuse Past Surgical History PAST SURGICAL HISTORY: Bilateral Total Knee Replacement, Cholecystectomy Allergies: Coded Allergies: No Known Allergies (Unverified Allergy, Unknown, 05/30/17) Family History PAST FAMILY HISTORY: Reviewed. No h/o DM or CAD Social History PAST SOCIAL HISTORY: History of alcohol abuse, quit 8 years ago per records. Smokes 1/2ppd. H/o Cocaine Abuse per record. Physical Exam Vital Signs Vital Signs Date Time Temp Pulse Resp B/P (MAP) Pulse Ox O2 Delivery O2 Flow Rate FiO2 06/24/17 21:53 98.3 101 20 99 Room Air 06/24/17 19:57 99 Room Air 06/24/17 19:47 104 18 129/81 (97) 99 Physical Exam PE: GENERAL: Middle-aged white female in no acute distress. Lethargic due to sedation. HEENT: PERRLA, EOMI. No scleral icterus or conjunctival pallor. No lid lag or facial droop. CARDIOVASCULAR: Regular rate and rhythm. No obvious murmurs to auscultation. No chest tenderness to palpation. RESPIRATORY: No obvious rhonchi or wheezing. Clear to auscultation. Breath sounds equal bilaterally. GASTROINTESTINAL: Abdomen soft, non-tender, nondistended. BS normal. MUSCULOSKELETAL: Extremities without clubbing, cyanosis, or edema. No obvious deformities. NEUROLOGICAL: Lethargic due to sedation. No focal neurologic deficits. Moving both upper and lower extremities spontaneously. Laboratory Laboratory Tests Test 06/24/17 20:15 06/24/17 20:24 06/24/17 20:28 White Blood Count 11.7 Red Blood Count 3.79 Hemoglobin 11.0 Hematocrit 32.3 Mean Corpuscular Volume 85.1 Mean Corpuscular Hemoglobin 29.1 Mean Corpuscular Hemoglobin Concent 34.2 Red Cell Distribution Width 17.7 Platelet Count 450 Mean Platelet Volume 7.0 Neutrophils (%) (Auto) 57.2 Lymphocytes (%) (Auto) 30.3 Monocytes (%) (Auto) 9.6 Eosinophils (%) (Auto) 2.0 Basophils (%) (Auto) 0.9 Neutrophils # (Auto) 6.7 Lymphocytes # (Auto) 3.5 Monocytes # (Auto) 1.1 Eosinophils # (Auto) 0.2 Basophils # (Auto) 0.1 CBC Comment DIFF FINAL Differential Comment Prothrombin Time 9.6 Prothromb Time International Ratio 0.9 Blood Urea Nitrogen 32 Creatinine 0.72 Random Glucose 90 Total Protein 7.0 Albumin 2.7 Calcium Level 8.8 Alkaline Phosphatase 423 Aspartate Amino Transf (AST/SGOT) 62 Alanine Aminotransferase (ALT/SGPT) 118 Total Bilirubin LESS THAN 0.1 Sodium Level 143 Potassium Level 3.8 Chloride Level 107 Carbon Dioxide Level 28.2 Anion Gap 8 Estimat Glomerular Filtration Rate 100 Total Creatine Kinase 49 Troponin I LESS THAN 0.02 Thyroid Stimulating Hormone 3rd Gen 1.260 Phenytoin (Dilantin) Level 28.9 Lactic Acid Level 1.9 Ammonia 32 Urine Color YELLOW Urine Turbidity CLOUDY Urine pH 5.5 Urine Specific [place] 1.020 Urine Protein 30 Urine Glucose (UA) NEG Urine Ketones NEG Urine Occult Blood MOD Urine Nitrite NEG Urine Bilirubin NEG Urine Urobilinogen LESS THAN 2.0 Urine Leukocyte Esterase LARGE Urine RBC 62 Urine WBC Urine WBC Clumps MANY Urine Bacteria MANY Microscopic Urinalysis Comment CATH-CULTURE IND Date/Time Source Procedure Growth Status 06/24/17 20:24 Blood Peripheral Aerobic Blood Culture Pending Received 06/24/17 20:24 Blood Peripheral Anaerobic Blood Culture Pending Received 06/24/17 20:28 Urine Catheterized Urine Urine Culture Pending Received Result Diagram: 06/24/17201406/24/172014 Caprini VTE Risk Assessment Caprini VTE Risk Assessment: No/Low Risk (score <= 1) Caprini Risk Assessment Model Point Value = 1 Point Value = 2 Point Value = 3 Point Value = 5 Age 41-60 Minor surgery BMI > 25 kg/m2 Swollen legs Varicose veins or History of unexplained or recurrent spontaneous Oral contraceptives or hormone replacement Sepsis (< 1 month) Serious lung disease, including pneumonia (< 1 month) Abnormal pulmonary function Acute myocardial infarction Congestive heart failure (< 1 month) History of inflammatory bowel disease Medical patient at bed rest Age 61-74 Arthroscopic surgery Major open surgery (> 45 min) Laparoscopic surgery (> 45 min) Malignancy Confined to bed (> 72 hours) Immobilizing plaster cast Central venous access Age >= 75 History of VTE Family history of VTE Factor V Leiden Prothrombin [id number] Lupus anticoagulant Anticardiolipin antibodies Elevated serum homocysteine Heparin-induced thrombocytopenia Other congenital or acquired thrombophilia Stroke (< 1 month) Elective arthroplasty Hip, pelvis, or leg fracture Acute spinal cord injury (< 1 month) Prophylaxis Regimen Total Risk Factor Score Risk Level Prophylaxis Regimen 0-1 Low Early ambulation 2 Moderate Order ONE of the following: *Sequential Compression Device (SCD) *Heparin 5000 units SQ BID 3-4 Higher Order ONE of the following medications: *Heparin 5000 units SQ TID *Enoxaparin/Lovenox 40 mg SQ daily (WT < 150 kg, CrCl > 30 mL/min) *Enoxaparin/Lovenox 30 mg SQ daily (WT < 150 kg, CrCl > 10-29 mL/min) *Enoxaparin/Lovenox 30 mg SQ BID (WT < 150 kg, CrCl > 30 mL/min) AND/OR *Sequential Compression Device (SCD) 5 or more Highest Order ONE of the following medications: *Heparin 5000 units SQ TID (Preferred with Epidurals) *Enoxaparin/Lovenox 40 mg SQ daily (WT < 150 kg, CrCl > 30 mL/min) *Enoxaparin/Lovenox 30 mg SQ daily (WT < 150 kg, CrCl > 10-29 mL/min) *Enoxaparin/Lovenox 30 mg SQ BID (WT < 150 kg, CrCl > 30 mL/min) AND *Sequential Compression Device (SCD) Assessment and Plan Problem List: (1) Encephalopathy ICD Code: G93.40 - Encephalopathy, unspecified (2) Phenytoin toxicity ICD Code: T42.0X1A - Poisoning by hydantoin derivatives, accidental ( unintentional), initial encounter (3) PNA (pneumonia) ICD Code: J18.9 - Pneumonia, unspecified organism (4) UTI (urinary tract infection) ICD Code: N39.0 - Urinary tract infection, site not specified Status: Acute (5) DM (diabetes mellitus) ICD Code: E11.9 - Type 2 diabetes mellitus without complications Status: Chronic Assessment and Plan A/P: 1. Encephalopathy: sent to ER from SNF for acute AMS, baseline unknown, combative/agitated requiring sedation in ER. CT Head w/ no acute findings, images reviewed by me. AMS possibly due to underlying infection-+UTI and PNA. H/o Cocaine Abuse per records, check Urine Drug Screen. 2. UTI: U/a w/ UTI, s/p Rocephin/Macrobid in ER, follow up cultures, continue IV Rocephin. 3. PNA: CXR w/ RLL infiltrate, images reviewed by me. Continue w/ IV Abx. DuoNeb prn. 4. DM: Sliding scale w/ Accu-Cheks. Resume home Levemir 5. DVT Prophylaxis: SCD/Teds. 6. Social work for d/c planning as needed. 7. Case discussed w/ ER physician at length, labs/records/imaging reviewed by me. Problem Qualifiers (1) UTI (urinary tract infection): Qualified Codes: N39.0 - Urinary tract infection, site not specified (2) Phenytoin toxicity: Qualified Codes: T42.0X1A - Poisoning by hydantoin derivatives, accidental ( unintentional), initial encounter Chichi Luna MD Jun 25, 2017 01:00
[2017-06-25] MEDS: AZITHROMYCIN INJ 500 MG in SODIUM CHLOR 0.9% 250 ML INJ 250 ML IV SCH (01:47)
[2017-06-25] MEDS: SODIUM CHLOR 0.9% 1000 ML INJ 1,000 ML IV SCH ×4 (01:52→16:30)
[2017-06-25 03:20] VITALS: BP 115/69; PULSE 94; RESP 20; TEMP 96.5; O2SAT 95
[2017-06-25 05:31] VITALS: O2SAT 96
[2017-06-25] MEDS: INSULIN ASPART SUPPLEMENTAL SCALE SQ SCH ×4 (08:00→21:00)
[2017-06-25] MEDS: SODIUM CHLORIDE 0.9% FLUSH 10 ML FLUSH IV FLUSH SCH ×2 (09:00→21:00)
[2017-06-25] MEDS: DOCUSATE SODIUM 50 MG/SENNA 8.6 MG TAB PO SCH ×2 (09:00→21:00)
--- NOTE | 2017-06-25 09:54 | HHI.PR ---
Subjective Remarks Follow up for AMS, falls, UTI, PNA. The patient is currently awake, alert, oriented to person, [facility], but not the year. She states she just wants to go home. She denies any medical complaints including no fevers/chills, headache, lightheadedness, dizziness, cough, chest pain, shortness of breath, abdominal or urinary complaints. She constantly moans throughout conversation and continues to state "I just want to go home". She will not explain how she ended up in the hospital. Objective Vitals Vital Signs Date Time Temp Pulse Resp B/P (MAP) Pulse Ox O2 Delivery O2 Flow Rate FiO2 06/25/17 07:11 06/25/17 05:31 96 21 06/25/17 03:20 96.5 94 20 115/69 (84) 95 06/24/17 21:53 98.3 101 20 99 Room Air 06/24/17 19:57 99 Room Air 06/24/17 19:47 104 18 129/81 (97) 99 Result Diagram: 06/24/17201406/24/172014 Imaging Last Impressions Head CT 06/24/171951 Signed Impressions: Service Date/Time: Sunday, June 25, 2017 00:23 - CONCLUSION: 1. No acute findings. No significant change from May 2017. Carlito Kruse MD Chest X-Ray 06/24/171951 Signed Impressions: Service Date/Time: Saturday, June 24, 2017 20:06 - CONCLUSION: Subsegmental consolidative infiltrate right lower lung. Guicho Villalobos MD Objective Remarks GENERAL: Well-nourished, well-developed female patient in [facility]. SKIN: Warm and dry. No rash. HEENT: Normocephalic. Atraumatic. Pupils equal and round. Mucous membranes pink and moist. NECK: Supple. Trachea midline. CARDIOVASCULAR: Regular rate and rhythm. S1, S2 noted. No murmur appreciated. RESPIRATORY: No accessory muscle use. Clear to auscultation. Breath sounds equal bilaterally. GASTROINTESTINAL: Abdomen soft, non-tender, nondistended. Normoactive bowel sounds x4. MUSCULOSKELETAL: No obvious deformities. Extremities without clubbing, cyanosis , or edema. NEUROLOGICAL: Awake and alert. No obvious cranial nerve deficits. Motor grossly within normal limits. Moving all extremities spontaneously. Normal speech. PSYCHIATRIC: Anxious mood Medications and IVs Current Medications Medications (Trade) Dose Ordered Sig/Danae Route Start Time Stop Time Status Last Admin (Ativan Inj) 1 mg Q4H PRN IV PUSH 06/25/17 00:15 Ceftriaxone Sodium 1000 mg/ Sodium Chloride 100 ml @ 200 mls/hr Q24H IV 06/25/17 22:00 Azithromycin 500 mg/Sodium Chloride 250 ml @ 250 mls/hr Q24H IV 06/25/17 01:00 06/25/17 01:47 (D50w (Vial) Inj) 50 ml UNSCH PRN IV PUSH 06/25/17 00:15 (Glucagon Inj) 1 mg UNSCH PRN OTHER 06/25/17 00:15 (NovoLOG SUPPLEMENTAL SCALE) 1 ACHS SLIDING SCALE SQ 06/25/17 08:00 Sodium Chloride 1,000 ml @ 100 mls/hr Q10H IV 06/25/17 00:01 06/25/17 06:00 (NS Flush) 2 ml UNSCH PRN IV FLUSH 06/25/17 00:15 (NS Flush) 2 ml BID IV FLUSH 06/25/17 09:00 (Zofran Inj) 4 mg Q6H PRN IVP 06/25/17 00:15 (Tylenol) 650 mg Q6H PRN PO 06/25/17 00:15 (Catalina-Colace) 1 tab BID PO 06/25/17 09:00 (Milk Of Magnesia Liq) 30 ml Q12H PRN PO 06/25/17 00:15 (Senokot) 17.2 mg Q12H PRN PO 06/25/17 00:15 (Dulcolax Supp) 10 mg DAILY PRN RECTAL 06/25/17 00:15 (Lactulose Liq) 30 ml DAILY PRN PO 06/25/17 00:15 (Folate) 1 mg DAILY PO 06/25/17 09:00 (Levemir Inj) 5 units DAILY SQ 06/25/17 09:00 (Duoneb Neb) 1 ampule Q4HR NEB PRN NEB 06/25/17 00:15 (Remeron) 15 mg HS PO 06/25/17 21:00 (Protonix) 40 mg DAILY PO 06/25/17 09:00 (Vitamin B1) 100 mg DAILY PO 06/25/17 09:00 (Vitamin C) 500 mg DAILY PO 06/25/17 09:00 A/P Problem List: (1) Encephalopathy ICD Code: G93.40 - Encephalopathy, unspecified (2) Phenytoin toxicity ICD Code: T42.0X1A - Poisoning by hydantoin derivatives, accidental ( unintentional), initial encounter (3) PNA (pneumonia) ICD Code: J18.9 - Pneumonia, unspecified organism (4) UTI (urinary tract infection) ICD Code: N39.0 - Urinary tract infection, site not specified Status: Acute (5) DM (diabetes mellitus) ICD Code: E11.9 - Type 2 diabetes mellitus without complications Status: Chronic Assessment and Plan 61-year-old female with a PMH of COPD, HTN, DM, Cocaine Abuse and Tobacco Abuse who was sent to the ER from SNF secondary to AMS and multiple falls. Acute Encephalopathy: sent to ER from SNF for acute AMS, baseline unknown, combative/agitated requiring sedation in ER. -CT Head w/ no acute findings, images reviewed by me. -AMS suspected to be due to underlying infection-+UTI and PNA. -Blood cultures collected and pending -H/o Cocaine Abuse per records, check Urine Drug Screen. -Monitor neurochecks -Consult PT UTI: U/a w/ UTI -Continue on IV Rocephin -Monitor urine culture PNA: CXR w/ RLL infiltrate, images reviewed by me. -Continue w/ IV Abx with Rocephin/Azithro. -DuoNeb q4h prn. Diabetes Mellitus: chronic, BG fairly well controlled -Continue Sliding scale w/ Accu-Cheks. -Resume home Levemir 5u DVT Prophylaxis: SCD/Teds. Problem Qualifiers (1) Phenytoin toxicity: Qualified Codes: T42.0X1A - Poisoning by hydantoin derivatives, accidental ( unintentional), initial encounter (2) UTI (urinary tract infection): Qualified Codes: N39.0 - Urinary tract infection, site not specified Patricia Villaseñor PA-C Jun 25, 2017 9:54 am
[2017-06-25] MEDS: FOLIC ACID 1 MG TAB PO SCH (11:04)
[2017-06-25] MEDS: PANTOPRAZOLE SOD 40 MG DELAYED RELEASE TAB PO SCH (11:05)
[2017-06-25] MEDS: INSULIN DETEMIR 100 UNITS/ML VIAL SQ SCH (11:05)
[2017-06-25] MEDS: THIAMINE HCL 100 MG TAB PO SCH (11:05)
[2017-06-25] MEDS: ASCORBIC ACID 500 MG TAB PO SCH (11:05)
[2017-06-25 11:29] VITALS: BP 114/70; PULSE 104; RESP 18; TEMP 98; O2SAT 96
[2017-06-25 15:24] VITALS: BP 130/83; PULSE 106; RESP 18; TEMP 97; O2SAT 90
[2017-06-25 19:34] VITALS: BP 154/82; PULSE 106; RESP 18; TEMP 98.8; O2SAT 93
[2017-06-25 23:36] VITALS: BP 149/89; PULSE 105; RESP 18; TEMP 98.9; O2SAT 96
[2017-06-26] VITALS (8 sets, daily range): BP systolic 132–147; BP diastolic 59–80; PULSE 83–105; RESP 17–20; TEMP 95.4–98.3; O2SAT 92–100
[2017-06-26] MEDS: MIRTAZAPINE 15 MG TAB PO SCH ×2 (00:11→21:43)
[2017-06-26] MEDS: cefTRIAXone INJ 1,000 MG in SODIUM CHLORIDE 0.9% INJ 100 ML IV SCH ×2 (00:17→21:43)
[2017-06-26] MEDS: AZITHROMYCIN INJ 500 MG in SODIUM CHLOR 0.9% 250 ML INJ 250 ML IV SCH (00:54)
[2017-06-26] MEDS: SODIUM CHLOR 0.9% 1000 ML INJ 1,000 ML IV SCH ×2 (00:54→15:38)
[2017-06-26] MEDS: INSULIN ASPART SUPPLEMENTAL SCALE SQ SCH ×4 (08:00→22:59)
[2017-06-26] MEDS: SODIUM CHLORIDE 0.9% FLUSH 10 ML FLUSH IV FLUSH SCH ×2 (08:27→21:00)
[2017-06-26] MEDS: THIAMINE HCL 100 MG TAB PO SCH (08:59)
[2017-06-26] MEDS: ASCORBIC ACID 500 MG TAB PO SCH (08:59)
[2017-06-26] MEDS: PANTOPRAZOLE SOD 40 MG DELAYED RELEASE TAB PO SCH (09:00)
[2017-06-26] MEDS: FOLIC ACID 1 MG TAB PO SCH (09:00)
[2017-06-26] MEDS: INSULIN DETEMIR 100 UNITS/ML VIAL SQ SCH (09:00)
[2017-06-26] MEDS: DOCUSATE SODIUM 50 MG/SENNA 8.6 MG TAB PO SCH ×2 (09:00→21:43)
--- NOTE | 2017-06-26 09:20 | HHI.PR ---
Subjective Remarks Follow up for AMS, falls, UTI, PNA. RN reports the patient was found laying on the floor this morning, curled up in position. Unknown if the patient actually fell. When nurses tried to get her up to bed, she had a blank stare and appeared to have a partial seizure, then was drowsy and postictal. No reported convulsions, tongue biting, or incontinence. The patient is currently awake, alert, oriented to person and [facility], but answers "I don't know " to year/president. She does not recall any fall or how she ended up on the floor. She complains of a mild frontal headache, no visual changes, dizziness, or unilateral numbness/weakness. Denies any neck, back, or hip pain. She states she is hungry. Denies any cough, congestion, chest pain, shortness of breath, abdominal pain, nausea/vomiting, or urinary complaints. Objective Vitals Vital Signs Date Time Temp Pulse Resp B/P (MAP) Pulse Ox O2 Delivery O2 Flow Rate FiO2 06/26/17 08:00 95.4 92 17 138/76 (96) 97 06/26/17 05:09 98.3 99 20 143/67 (92) 92 06/25/17 23:36 98.9 105 18 149/89 (109) 96 06/25/17 19:34 98.8 106 18 154/82 (106) 93 06/25/17 15:24 97.0 106 18 130/83 (99) 90 06/25/17 11:29 98.0 104 18 114/70 (85) 96 I/O 06/25/17 06/25/17 06/25/17 06/26/17 06/26/17 06/26/17 07:00 15:00 23:00 07:00 15:00 23:00 Intake Total 1200 ml Balance 1200 ml IV Total 1200 ml # Voids 3 Result Diagram: 06/24/17201406/24/172014 Imaging Last Impressions Head CT 06/24/171951 Signed Impressions: Service Date/Time: Sunday, June 25, 2017 00:23 - CONCLUSION: 1. No acute findings. No significant change from May 2017. Carlito Kruse MD Chest X-Ray 06/24/171951 Signed Impressions: Service Date/Time: Saturday, June 24, 2017 20:06 - CONCLUSION: Subsegmental consolidative infiltrate right lower lung. Guicho Villalobos MD Objective Remarks GENERAL: Well-nourished, well-developed female patient in [facility]. SKIN: Warm and dry. No rash. Sacral ulcer covered with mepilex, no surrounding erythema or foul odor. HEENT: Normocephalic. Atraumatic. Pupils equal and round. Mucous membranes pink and moist. NECK: Supple. Trachea midline. CARDIOVASCULAR: Regular rate and rhythm. S1, S2 noted. No murmur appreciated. RESPIRATORY: No accessory muscle use. Clear to auscultation. Breath sounds equal bilaterally. GASTROINTESTINAL: Abdomen soft, non-tender, nondistended. Normoactive bowel sounds x4. MUSCULOSKELETAL: No obvious deformities. Extremities without clubbing, cyanosis , or edema. NEUROLOGICAL: Awake and alert. No obvious cranial nerve deficits. Motor grossly within normal limits. Moving all extremities spontaneously. Normal speech. PSYCHIATRIC: Calm mood. Smiling. Insight and judgment limited. Medications and IVs Current Medications Medications (Trade) Dose Ordered Sig/Danae Route Start Time Stop Time Status Last Admin (Ativan Inj) 1 mg Q4H PRN IV PUSH 06/25/17 00:15 Ceftriaxone Sodium 1000 mg/ Sodium Chloride 100 ml @ 200 mls/hr Q24H IV 06/25/17 22:00 06/26/17 00:17 Azithromycin 500 mg/Sodium Chloride 250 ml @ 250 mls/hr Q24H IV 06/25/17 01:00 06/26/17 00:54 (D50w (Vial) Inj) 50 ml UNSCH PRN IV PUSH 06/25/17 00:15 (Glucagon Inj) 1 mg UNSCH PRN OTHER 06/25/17 00:15 (NovoLOG SUPPLEMENTAL SCALE) 1 ACHS SLIDING SCALE SQ 06/25/17 08:00 Sodium Chloride 1,000 ml @ 100 mls/hr Q10H IV 06/25/17 00:01 06/26/17 00:54 (NS Flush) 2 ml UNSCH PRN IV FLUSH 06/25/17 00:15 (NS Flush) 2 ml BID IV FLUSH 06/25/17 09:00 (Zofran Inj) 4 mg Q6H PRN IVP 06/25/17 00:15 (Tylenol) 650 mg Q6H PRN PO 06/25/17 00:15 (Catalina-Colace) 1 tab BID PO 06/25/17 09:00 06/26/17 09:00 (Milk Of Magnesia Liq) 30 ml Q12H PRN PO 06/25/17 00:15 (Senokot) 17.2 mg Q12H PRN PO 06/25/17 00:15 (Dulcolax Supp) 10 mg DAILY PRN RECTAL 06/25/17 00:15 (Lactulose Liq) 30 ml DAILY PRN PO 06/25/17 00:15 (Folate) 1 mg DAILY PO 06/25/17 09:00 06/26/17 09:00 (Levemir Inj) 5 units DAILY SQ 06/25/17 09:00 06/26/17 09:00 (Duoneb Neb) 1 ampule Q4HR NEB PRN NEB 06/25/17 00:15 (Remeron) 15 mg HS PO 06/25/17 21:00 06/26/17 00:11 (Protonix) 40 mg DAILY PO 06/25/17 09:00 06/26/17 09:00 (Vitamin B1) 100 mg DAILY PO 06/25/17 09:00 06/26/17 08:59 (Vitamin C) 500 mg DAILY PO 06/25/17 09:00 06/26/17 08:59 A/P Problem List: (1) Encephalopathy ICD Code: G93.40 - Encephalopathy, unspecified (2) Phenytoin toxicity ICD Code: T42.0X1A - Poisoning by hydantoin derivatives, accidental ( unintentional), initial encounter (3) PNA (pneumonia) ICD Code: J18.9 - Pneumonia, unspecified organism (4) UTI (urinary tract infection) ICD Code: N39.0 - Urinary tract infection, site not specified Status: Acute (5) DM (diabetes mellitus) ICD Code: E11.9 - Type 2 diabetes mellitus without complications Status: Chronic Assessment and Plan 61-year-old female with a PMH of COPD, HTN, DM, Cocaine Abuse and Tobacco Abuse who was sent to the ER from SNF secondary to AMS and multiple falls. Acute Encephalopathy: sent to ER from SNF for acute AMS, baseline unknown, combative/agitated requiring sedation in ER. AMS suspected to be due to underlying infection-+UTI and PNA. -CT Head w/ no acute findings, images reviewed by me. -Blood cultures with no growth x1day -H/o Cocaine Abuse per records, Urine Drug Screen negative. -Monitor neurochecks -Consult PT/OT, patient is from SNF Dilantin Toxicity, Questionable Seizure: patient found on floor this morning by nursing staff, appeared to have partial seizure and then postictal -Dilantin level 28.9 upon arrival, dilantin held, check stat dilantin level and restart if indicated -check Brain MRI -check EEG -neuro checks, seizure precautions -Consult neurology PNA: CXR w/ RLL infiltrate, images reviewed by me. Mild leukocytosis with WBC 11.7K, tachycardic HR 104 -Continue w/ IV Abx with Rocephin/Azithro. -DuoNeb q4h prn. UTI: U/a w/ UTI -Continue on IV Rocephin (also being treated for pneumonia as above) -Monitor urine culture, no growth x24hrs Diabetes Mellitus: chronic, BG fairly well controlled -Continue Sliding scale w/ Accu-Cheks. -Resume home Levemir 5u Sacral Ulcer: present on admission, documented on previous admissions -consult forensic ballistics expert -continue mepilex dressing for now DVT Prophylaxis: SCD/Teds. Discharge Planning Patient with multiple active medical issues. Discussed with case management, will admit to inpatient. Problem Qualifiers (1) Phenytoin toxicity: Qualified Codes: T42.0X1A - Poisoning by hydantoin derivatives, accidental ( unintentional), initial encounter (2) UTI (urinary tract infection): Qualified Codes: N39.0 - Urinary tract infection, site not specified Patricia Villaseñor PA-C Jun 26, 2017 09:20
--- NOTE | 2017-06-26 13:06 | RADRPT ---
EXAM DATE/TIME: 06/26/2017 11:10 [facility] COMPARISON: MRI BRAIN W/O CONTRAST, May 30, 2017, 10:22. INDICATIONS : Seizures. MEDICAL HISTORY : Hypertension. Seizures. Myocardial infarction. SURGICAL HISTORY : Bilateral knee replacement ENCOUNTER: Subsequent ACUITY: 1 day PAIN SCORE: 0/10 LOCATION: cranial TECHNIQUE: Multiplanar, multisequence MRI of the brain was performed without contrast. FINDINGS: CEREBRUM: The ventricles are normal for age. No evidence of midline shift, mass lesion, hemorrhage or acute in farction. No extraaxial fluid collections are seen. The pituitary gland and suprasellar cistern are normal in configuration. WHITE MATTER: Mild periventricular and moderate scattered deep white matter focal T2 prolongation similar to prior exam. POSTERIOR FOSSA: The cerebellum and brainstem are intact. The 4th ventricle is midline. The cerebellopontine angle is unremarkable. The cerebellar tonsils are normal in position. DIFFUSION IMAGING: No focal areas of restricted diffusion are seen. No evidence of acute infarction. EXTRACRANIAL: The visualized portions of the orbits and paranasal sinuses are unremarkable. CONCLUSION: 1. Redemonstration of mild to moderate scattered white matter signal changes. Although stable, this r emains out of proportion for simple benign microvascular ischemic change. 2. Otherwise, no acute intracranial abnormality or interval change. Barber Espino MD on June 26, 2017 at 13:01 Board Certified Radiologist. This report was verified electronically.
[2017-06-26 15:03] LABS: ALBUMIN 2.6 GM/DL (3.4-5.0); ALT (GPT) 115 U/L (10-53); AST (GOT) 71 U/L (15-37); BICARBONATE 24.6 MEQ/L (21.0-32.0); BLOOD UREA NITROGEN 15 MG/DL (7-18); CALCIUM 9.4 MG/DL (8.5-10.1); CHLORIDE 107 MEQ/L (98-107); CREATININE 0.35 MG/DL (0.50-1.00); GLOMERULAR FILTRATION RATE 230 ML/MIN (>89); GLUCOSE,RANDOM 151 MG/DL (74-106); SODIUM (NA) 141 MEQ/L (136-145)
[2017-06-26 15:10] LABS: ALKALINE PHOSPHATASE 428 U/L (45-117); TOTAL BILIRUBIN ADULT 0.2 MG/DL (0.2-1.0); TOTAL PROTEIN 6.7 GM/DL (6.4-8.2)
--- NOTE | 2017-06-26 16:26 | RADRPT ---
EXAM DATE/TIME: 06/26/2017 16:05 [facility] COMPARISON: No previous studies available for comparison. INDICATIONS : Sacral pain after fall, ulcer. MEDICAL HISTORY : None. SURGICAL HISTORY : None. ENCOUNTER: Initial ACUITY: 2 days PAIN SCORE: 10/10 LOCATION: Bilateral sacral region. FINDINGS: Two-view examination of the sacrum and coccyx demonstrates no evidence of fracture or malalignment. The sacral ala and foramina appear symmetric and intact. The coccyx appears unremarkable. The preve rtebral soft tissues are within normal limits. CONCLUSION: Negative for acute process. Luis Reynoso MD FACR on June 26, 2017 at 16:18 Board Certified Radiologist. This report was verified electronically.
--- NOTE | 2017-06-26 17:17 | MB ---
cc: FILIPE ANSARI M.D. DATE OF CONSULTATION 06/26/2017 REASON FOR CONSULTATION Mental status change. HISTORY OF PRESENT ILLNESS Ms. Root is a 61-year-old woman who came to the emergency room from the [facility] facility with alteration in mental status with multiple falls and confusion as well as agitation. She has had no focal deficits. She has no headaches. PAST MEDICAL HISTORY There is a history of: 1. COPD. 2. Hypertension. 3. Diabetes. 4. Cocaine abuse. MEDICATIONS Are: 1. Ceftriaxone. 2. Remeron 15 mg at bedtime. 3. Senna. 4. Folic acid 1 milligram daily. 5. Levemir insulin. 6. Protonix 40 mg daily. 7. Vitamin B1. 8. Vitamin C. 9. Ativan as needed. 10. Glucagon as needed. 11. Zofran as needed. 12. Senokot. 13. Lactulose. NEUROLOGIC EXAMINATION VITAL SIGNS: Blood pressure 132/59, pulse is 92, respirations 17, temperature 96 degrees. Higher cortical functions, she is alert. She is oriented x2. Recalls 0/3 objects in 3 minutes. She follows simple commands. Naming ability is normal. Cranial nerves intact. Motor exam, there is no focal deficit noted. IMAGING MRI of the brain shows chronic changes, mainly chronic ischemic demyelinization. No acute stroke is identified. CT scan of the head, no acute findings. LABORATORY DATA White count 11,700, hemoglobin 11, hematocrit 32%, platelet count 450,000. PT 9.6, INR 0.9. Sodium is 143, potassium 3.8, chloride 107, CO2 28, BUN is 32, creatinine 0.72, GFR is 100, glucose is 90. Alkaline phos 423, ammonia 32. Urinalysis the pH is 5.5, specific gravity 1.020, protein 30, 62 rbc's are identified, innumerable wbc's are seen. Chest x-ray shows an infiltrate in the right lower lobe. IMPRESSION Probable metabolic encephalopathy from pneumonia and urinary tract infection. Filipe Ansari MD ITZ/KK /3:34 PM /5:02 PM
[2017-06-26 18:27] LABS: BASOPHIL # 0.1 TH/MM3 (0-0.2); BASOPHIL % 0.6 % (0.0-2.0); EOSINOPHIL # 0.2 TH/MM3 (0-0.4); EOSINOPHIL % 2.2 % (0.0-4.0); LYMPH % 25.4 % (9.0-44.0); LYMPHOCYTE # 2.4 TH/MM3 (1.0-4.8); MEAN CELL VOLUME 84.9 FL (80.0-100.0); MEAN CORPUSCULAR HEMOGLOBIN 29.1 PG (27.0-34.0); MEAN CORPUSCULAR HGB CONC 34.2 % (32.0-36.0); MEAN PLATELET VOLUME 7.2 FL (7.0-11.0); MONO % 8.4 % (0.0-8.0); MONOCYTE # 0.8 TH/MM3 (0-0.9); NEUT % 63.4 % (16.0-70.0); PLATELET COUNT 387 TH/MM3 (150-450); RED BLOOD COUNT 3.77 MIL/MM3 (4.00-5.30); RED CELL DISTRIBUTION WIDTH 17.5 % (11.6-17.2); WHITE BLOOD COUNT 9.5 TH/MM3 (4.0-11.0)
[2017-06-26] MEDS: ACETAMINOPHEN/HYDROcodone 325 MG/5 MG TAB PO PRN (21:44)
[2017-06-27] VITALS (13 sets, daily range): BP systolic 145–181; BP diastolic 84–102; PULSE 74–101; RESP 16–18; TEMP 97.7–98.8; O2SAT 96–100
[2017-06-27] MEDS: AZITHROMYCIN INJ 500 MG in SODIUM CHLOR 0.9% 250 ML INJ 250 ML IV SCH (00:08)
[2017-06-27] MEDS: SODIUM CHLOR 0.9% 1000 ML INJ 1,000 ML IV SCH ×2 (02:01→12:35)
[2017-06-27] MEDS: ACETAMINOPHEN/HYDROcodone 325 MG/5 MG TAB PO PRN ×3 (06:40→22:32)
[2017-06-27] MEDS: SODIUM CHLORIDE 0.9% FLUSH 10 ML FLUSH IV FLUSH SCH ×2 (09:00→22:33)
[2017-06-27] MEDS: INSULIN DETEMIR 100 UNITS/ML VIAL SQ SCH (09:15)
[2017-06-27] MEDS: INSULIN ASPART SUPPLEMENTAL SCALE SQ SCH ×4 (09:15→21:00)
[2017-06-27] MEDS: FOLIC ACID 1 MG TAB PO SCH (09:38)
[2017-06-27] MEDS: ASCORBIC ACID 500 MG TAB PO SCH (09:38)
[2017-06-27] MEDS: DOCUSATE SODIUM 50 MG/SENNA 8.6 MG TAB PO SCH ×2 (09:38→22:31)
[2017-06-27] MEDS: PANTOPRAZOLE SOD 40 MG DELAYED RELEASE TAB PO SCH (09:38)
[2017-06-27] MEDS: THIAMINE HCL 100 MG TAB PO SCH (09:38)
--- NOTE | 2017-06-27 10:20 | RADRPT ---
EXAM DATE/TIME: 06/27/2017 09:19 [facility] COMPARISON: US ABDOMEN - LIVER, March 17, 2017, 17:22. INDICATIONS : Increased lab values. MEDICAL HISTORY : Myocardial infarction. Arthritis. Seizures. Chest pain. HTN. COPD. Asthma. Ulcer. Diabetes. MRSA. SURGICAL HISTORY : Cholecystectomy. Bilateral total knee replacements. ENCOUNTER: Initial ACUITY: 1 day PAIN SCORE: 0/10 LOCATION: Bilateral upper quadrant MEASUREMENTS: LIVER: 19.0 cm length COMMON DUCT: 7 mm RIGHT KIDNEY: 11.6 x 5.7 x 5.9 cm SPLEEN: 12.3 cm length FINDINGS: LIVER: Normal echotexture without focal lesion or ductal dilatation. COMMON DUCT: No intraluminal mass or stone visualized. GALLBLADDER: Gallbladder surgically absent. PANCREAS: The visualized portions are within normal limits. RIGHT KIDNEY: No hydronephrosis, stone or mass. SPLEEN: No focal lesion. CONCLUSION: 1. Prior cholecystectomy. 2. Otherwise, unremarkable exam. Guicho Barnett Jr., MD on June 27, 2017 at 10:10 Board Certified Radiologist. This report was verified electronically.
--- NOTE | 2017-06-27 11:15 | HHI.PR ---
Subjective Remarks Patient says she is feeling well. Says she would like to go home. She denies any pain. Objective Vital Signs Date Time Temp Pulse Resp B/P (MAP) Pulse Ox O2 Delivery O2 Flow Rate FiO2 06/27/17 09:34 97.7 98 16 149/91 (110) 100 06/27/17 06:30 98.8 84 18 147/84 (105) 98 06/27/17 04:45 101 06/27/17 00:03 97 06/27/17 00:00 98.0 81 18 181/89 (119) 97 06/26/17 20:12 105 06/26/17 20:00 Nasal Cannula 1.00 06/26/17 16:00 95.8 91 17 147/80 (102) 94 06/26/17 15:41 83 06/26/17 12:00 96.3 92 17 132/59 (83) 100 06/26/17 11:53 90 I/O 06/26/17 06/26/17 06/26/17 06/27/17 06/27/17 06/27/17 07:00 15:00 23:00 07:00 15:00 23:00 Intake Total 1200 ml 1350 ml Balance 1200 ml 1350 ml IV Total 1200 ml 1350 ml # Voids 3 4 # Bowel Movements 0 Result Diagram: 06/26/17 1800 06/26/17 1019 Objective Remarks GENERAL: Patient lying in bed. Appears comfortable. SKIN: Warm and dry. HEAD: Normocephalic. EYES: No scleral icterus. No injection or drainage. NECK: Supple, trachea midline. No JVD. CARDIOVASCULAR: Regular rate and rhythm without murmurs, gallops, or rubs. RESPIRATORY: Breath sounds equal bilaterally. No accessory muscle use. GASTROINTESTINAL: Abdomen soft, non-tender, nondistended. MUSCULOSKELETAL: No cyanosis, or edema. BACK: Nontender without obvious deformity. No CVA tenderness. A/P Assessment and Plan 61-year-old female with a PMH of COPD, HTN, DM, Cocaine Abuse and Tobacco Abuse who was sent to the ER from SNF secondary to AMS and multiple falls. //Acute Encephalopathy: sent to ER from SNF for acute AMS, baseline unknown, combative/agitated requiring sedation in ER. AMS suspected to be due to underlying infection-+UTI and PNA. -CT Head w/ no acute findings, images reviewed by me. -Blood cultures with no growth x1day -H/o Cocaine Abuse per records, Urine Drug Screen negative. -Monitor neurochecks -Consult PT/OT, patient is from SNF //Dilantin Toxicity, Questionable Seizure: patient found on floor this morning by nursing staff, appeared to have partial seizure and then postictal -Dilantin level 28.9 upon arrival, dilantin held, check stat dilantin level and restart if indicated -check Brain MRI -check EEG -neuro checks, seizure precaution -Appreciate neurology's assistance. Neurology feels that symptoms are secondary to infection. Levels improved. We will discharge home on decreased dosing. = EEG pending //PNA: CXR w/ RLL infiltrate, images reviewed by me. Mild leukocytosis with WBC 11.7K, tachycardic HR 104 -Continue w/ IV Abx with Rocephin/Azithro. -DuoNeb q4h prn. = At discharge can continue Levaquin to complete treatment course. //UTI: U/a w/ UTI -Continue on IV Rocephin (also being treated for pneumonia as above) -Nicolle glabrata. Patient has chronic dirty UA. Unlikely UTI. Will check ultrasound to rule out hydronephrosis. //Diabetes Mellitus: chronic, BG fairly well controlled -Continue Sliding scale w/ Accu-Cheks. -Resume home Levemir 5u //Sacral Ulcer: present on admission, documented on previous admissions -consult silo erector -continue mepilex dressing for now //DVT Prophylaxis: SCD/Teds. Discharge Planning Pending EEG, renal ultrasound. After workup, patient can likely go back to SNF on by mouth antibiotics to complete course for pneumonia, lower dose of Dilantin due to Dilantin toxicity. Elliot Law MD Jun 27, 2017 11:14
--- NOTE | 2017-06-27 11:58 | RADRPT ---
EXAM DATE/TIME: 06/27/2017 11:18 [facility] COMPARISON: US KIDNEY/RENAL/BLADDER, March 20, 2017, 18:01. INDICATIONS : Obstruction. MEDICAL HISTORY : Myocardial infarction. Hypertension. Chronic obstructive pulmonary disease. Sei zures. Diabetes.Ulcer. MRSA. SURGICAL HISTORY : Cholecystectomy. Bilateral total knee replacement. ENCOUNTER: Subsequent ACUITY: 2 months PAIN SCORE: 0/10 LOCATION: Bilateral flank MEASUREMENTS: RIGHT KIDNEY: 12.4 x 5.9 x 5.7 cm LEFT KIDNEY: 12.3 x 7.1 x 5.5 cm FINDINGS: RIGHT KIDNEY: Diffusely increased cortical echogenicity without stone or focal mass. Slight promi nence of the central renal pelvis measuring up to 9 mm. LEFT KIDNEY: Diffusely increased cortical echogenicity without evidence for hydronephrosis, stone or mass. BLADDER: Significantly distended measuring up to 1236 mL in volume. There is a small amount of ec hogenic avascular oval debris in the base of the bladder. CONCLUSION: 1. Significantly distended bladder containing small amount of debris consistent with neurogenic bladd er versus bladder outlet obstruction. 2. Subtle prominence of the right renal pelvis. Otherwise, no hydronephrosis. 3. Diffusely increased renal cortical echogenicity consistent with medical renal disease. Barber Espino MD on June 27, 2017 at 11:52 Board Certified Radiologist. This report was verified electronically.
--- NOTE | 2017-06-27 15:15 | MG ---
cc: FILIPE MARIANO Lab No: [id number] Date: 06/27/2017 Age: Sex: F Race: TECHNIQUE This is a 17 channel EEG. DESCRIPTION The background rhythm reveals symmetrical alpha rhythm frequency is 8 Hz during drowsiness, there is slowing in the theta range at 6 Hz amplitude is roughly 10-20 microvolts. There are no lateralizing features present. There are no epileptiform features present. Rare muscle artifact is seen. Photic results in a normal driving response. INTERPRETATION Normal electroencephalogram. MD ITZ Moise/adria /2:55 PM /3:04 PM
[2017-06-27] MEDS ORDERED: LEVO750T3 PO (15:41)
[2017-06-27] MEDS ORDERED: HYDR-3516 PO (15:41)
[2017-06-27] MEDS ORDERED: TAMSULOSIN HCL 0.4 MG CAP PO ONE (15:45)
[2017-06-27] MEDS ORDERED: TAMS5CAP PO (15:45)
[2017-06-27] MEDS: cefTRIAXone INJ 1,000 MG in SODIUM CHLORIDE 0.9% INJ 100 ML IV SCH (22:31)
[2017-06-27] MEDS: MIRTAZAPINE 15 MG TAB PO SCH (22:31)
[2017-06-28] VITALS: BP 148/84; PULSE 78; RESP 18; TEMP 98; O2SAT 98
[2017-06-28] MEDS: AZITHROMYCIN INJ 500 MG in SODIUM CHLOR 0.9% 250 ML INJ 250 ML IV SCH (00:44)
[2017-06-28 04:00] VITALS: BP 151/78; PULSE 68; RESP 18; TEMP 97.8; O2SAT 98
[2017-06-28 06:07] VITALS: PULSE 95
[2017-06-28 07:01] VITALS: PULSE 100
[2017-06-28 07:52] VITALS: BP 146/94; PULSE 101; RESP 18; TEMP 98.3; O2SAT 100
[2017-06-28] MEDS: INSULIN ASPART SUPPLEMENTAL SCALE SQ SCH (08:00)
[2017-06-28 08:20] LABS: AUTOMATED NEUTROPHIL # 8.3 TH/MM3 (1.8-7.7); BASOPHIL # 0.1 TH/MM3 (0-0.2); BASOPHIL % 0.6 % (0.0-2.0); EOSINOPHIL # 0.2 TH/MM3 (0-0.4); EOSINOPHIL % 1.4 % (0.0-4.0); HEMATOCRIT 33.7 % (35.0-46.0); HEMOGLOBIN 11.3 GM/DL (11.6-15.3); LYMPHOCYTE # 2.5 TH/MM3 (1.0-4.8); MEAN CELL VOLUME 84.7 FL (80.0-100.0); MEAN CORPUSCULAR HEMOGLOBIN 28.5 PG (27.0-34.0); MEAN CORPUSCULAR HGB CONC 33.6 % (32.0-36.0); MEAN PLATELET VOLUME 7.2 FL (7.0-11.0); MONO % 7.8 % (0.0-8.0); MONOCYTE # 0.9 TH/MM3 (0-0.9); NEUT % 69.2 % (16.0-70.0); PLATELET COUNT 389 TH/MM3 (150-450); RED BLOOD COUNT 3.98 MIL/MM3 (4.00-5.30); RED CELL DISTRIBUTION WIDTH 17.2 % (11.6-17.2); WHITE BLOOD COUNT 11.9 TH/MM3 (4.0-11.0)
[2017-06-28 08:46] LABS: ALBUMIN 2.8 GM/DL (3.4-5.0); BICARBONATE 25.4 MEQ/L (21.0-32.0); CALCIUM 8.9 MG/DL (8.5-10.1); CREATININE 0.26 MG/DL (0.50-1.00); MAGNESIUM 1.6 MG/DL (1.5-2.5); PHOSPHORUS 3.9 MG/DL (2.5-4.9)
[2017-06-28 08:49] LABS: PHENYTOIN (DILANTIN) 10.1 MCG/ML (10.0-20.0)
[2017-06-28] MEDS ORDERED: TAMSULOSIN HCL 0.4 MG CAP PO SCH (09:00)
[2017-06-28] MEDS: INSULIN DETEMIR 100 UNITS/ML VIAL SQ SCH (09:14)
[2017-06-28] MEDS: SODIUM CHLOR 0.9% 1000 ML INJ 1,000 ML IV SCH (09:15)
[2017-06-28] MEDS: SODIUM CHLORIDE 0.9% FLUSH 10 ML FLUSH IV FLUSH SCH (09:16)
[2017-06-28] MEDS: DOCUSATE SODIUM 50 MG/SENNA 8.6 MG TAB PO SCH (09:16)
[2017-06-28] MEDS: ASCORBIC ACID 500 MG TAB PO SCH (09:17)
[2017-06-28] MEDS: FOLIC ACID 1 MG TAB PO SCH (09:17)
[2017-06-28] MEDS: THIAMINE HCL 100 MG TAB PO SCH (09:17)
[2017-06-28] MEDS: PANTOPRAZOLE SOD 40 MG DELAYED RELEASE TAB PO SCH (09:17)
--- NOTE | 2017-06-28 09:18 | HHI.PR ---
Subjective Remarks Patient says she is feeling well. Denies any pain. Feels like leaving hospital. Patient denies any difficulty urinating. Has any dysuria. Discussed with nurse. Patient urinating well on Flomax. Pending bladder scan. Objective Vital Signs Date Time Temp Pulse Resp B/P (MAP) Pulse Ox O2 Delivery O2 Flow Rate FiO2 06/28/17 07:52 98.3 101 18 146/94 (111) 100 06/28/17 07:01 100 06/28/17 06:07 95 06/28/17 04:00 97.8 68 18 151/78 (102) 98 06/28/17 00:00 98.0 78 18 148/84 (105) 98 06/27/17 23:32 14 06/27/17 21:08 98 Nasal Cannula 2.00 06/27/17 21:08 98 2.00 06/27/17 20:17 94 06/27/17 19:32 98.1 74 18 154/89 (110) 96 06/27/17 16:19 89 06/27/17 14:34 98.0 90 18 145/86 (105) 100 06/27/17 11:38 98.1 92 18 173/102 (125) 100 06/27/17 11:31 96 06/27/17 09:34 97.7 98 16 149/91 (110) 100 I/O 06/27/17 06/27/17 06/27/17 06/28/17 06/28/17 06/28/17 07:00 15:00 23:00 07:00 15:00 23:00 Intake Total 1350 ml Balance 1350 ml IV Total 1350 ml # Voids 4 4 5 # Bowel Movements 0 1 1 Result Diagram: 06/28/1771806/28/17718 Objective Remarks GENERAL: Patient lying in bed. Appears comfortable. No change on exam. SKIN: Warm and dry. HEAD: Normocephalic. EYES: No scleral icterus. No injection or drainage. NECK: Supple, trachea midline. No JVD. CARDIOVASCULAR: Regular rate and rhythm without murmurs, gallops, or rubs. RESPIRATORY: Breath sounds equal bilaterally. No accessory muscle use. GASTROINTESTINAL: Abdomen soft, non-tender, nondistended. MUSCULOSKELETAL: No cyanosis, or edema. BACK: Nontender without obvious deformity. No CVA tenderness. A/P Assessment and Plan 61-year-old female with a PMH of COPD, HTN, DM, Cocaine Abuse and Tobacco Abuse who was sent to the ER from SNF secondary to AMS and multiple falls. //Acute Encephalopathy: sent to ER from SNF for acute AMS, baseline unknown, combative/agitated requiring sedation in ER. AMS suspected to be due to underlying infection-+UTI and PNA. -CT Head w/ no acute findings, images reviewed by me. -Blood cultures with no growth x1day -H/o Cocaine Abuse per records, Urine Drug Screen negative. -Monitor neurochecks -Consult PT/OT, patient is from SNF //Urinary retention -Ultrasound without hydronephrosis, however does show distended bladder. -Likely exacerbated by narcotics. Hold narcotics Started on Flomax. Appears to have improved. Will check ultrasound, hopefully postvoid residual is less than 250 mL. //Dilantin Toxicity, Questionable Seizure: patient found on floor this morning by nursing staff, appeared to have partial seizure and then postictal -Dilantin level 28.9 upon arrival, dilantin held, check stat dilantin level and restart if indicated -check Brain MRI -check EEG -neuro checks, seizure precaution -Appreciate neurology's assistance. Neurology feels that symptoms are secondary to infection. Levels improved. We will discharge home on decreased dosing. = EEG with no epileptic activity. Repeat Dilantin within treatment range. Charge home on lower dose //PNA: CXR w/ RLL infiltrate, images reviewed by me. Mild leukocytosis with WBC 11.7K, tachycardic HR 104 -Continue w/ IV Abx with Rocephin/Azithro. -DuoNeb q4h prn. = At discharge can continue Levaquin to complete treatment course. //UTI: U/a w/ UTI -Continue on IV Rocephin (also being treated for pneumonia as above) -Nicolle glabrata. Patient has chronic dirty UA. Unlikely UTI. -Treating bladder distention as above. //Diabetes Mellitus: chronic, BG fairly well controlled -Continue Sliding scale w/ Accu-Cheks. -Continue home Levemir 5u //Sacral Ulcer: present on admission, documented on previous admissions -consult manager management -continue mepilex dressing for now //DVT Prophylaxis: SCD/Teds. Discharge Planning bladder scan pending. if less than 250ml okay to go back to SNF. After workup, patient can likely go back to SNF on by mouth antibiotics to complete course for pneumonia, lower dose of Dilantin due to Dilantin toxicity. Elliot Law MD Jun 28, 2017 09:18
[2017-06-28] MEDS ORDERED: PHEN100C PO (09:19)
--- NOTE | 2017-06-28 09:28 | HHI.DS ---
Discharge Summary Admission Date Jun 26, 2017 at 09:06 Discharge Date: Jun 28, 2017 Admitting Diagnosis AMS, UTI, phenytoin toxicity (1) Encephalopathy ICD Code: G93.40 - Encephalopathy, unspecified (2) Phenytoin toxicity ICD Code: T42.0X1A - Poisoning by hydantoin derivatives, accidental ( unintentional), initial encounter (3) PNA (pneumonia) ICD Code: J18.9 - Pneumonia, unspecified organism (4) UTI (urinary tract infection) ICD Code: N39.0 - Urinary tract infection, site not specified Status: Acute (5) DM (diabetes mellitus) ICD Code: E11.9 - Type 2 diabetes mellitus without complications Status: Chronic Procedures No invasive procedures. Brief History - From Admission This is a 61-year-old female with a PMH of COPD, HTN, DM, Cocaine Abuse and Tobacco Abuse who was sent to the ER from SNF secondary to AMS. Per report, pt also noted to have multiple falls throughout the day. Pt unable to provide any history. While in ER, pt significantly agitated, combative and refusing treatment, s/p Ativan. On arrival, BP 129/81, HR 104, O2 sat 99% on RA, Afebrile. W WBC 11.7. Chemistry essentially unremarkable. LFTs elevated similar comparison to previous. Lactic Acid 1.9. Troponin negative. INR 0.9. UA positive for UTI. Phenytoin Level elevated at 28.9. CXR with consolidation right lower lung. CT Head negative. S/p Rocephin/Macrobid in ER. CBC/BMP: 06/28/17 0719 06/28/17 0719 Significant Findings Laboratory Tests Test 06/26/17 10:19 06/26/17 18:00 06/28/17 07:19 Creatinine 0.35 MG/DL (0.50-1.00) 0.26 MG/DL (0.50-1.00) Random Glucose 151 MG/DL (74-106) Albumin 2.6 GM/DL (3.4-5.0) 2.8 GM/DL (3.4-5.0) Alkaline Phosphatase 428 U/L (45-117) Aspartate Amino Transf (AST/SGOT) 71 U/L (15-37) Alanine Aminotransferase (ALT/SGPT) 115 U/L (10-53) Phenytoin (Dilantin) Level 22.0 MCG/ML (10.0-20.0) Red Blood Count 3.77 MIL/MM3 (4.00-5.30) 3.98 MIL/MM3 (4.00-5.30) Hemoglobin 11.0 GM/DL (11.6-15.3) 11.3 GM/DL (11.6-15.3) Hematocrit 32.0 % (35.0-46.0) 33.7 % (35.0-46.0) Red Cell Distribution Width 17.5 % (11.6-17.2) Monocytes (%) (Auto) 8.4 % (0.0-8.0) White Blood Count 11.9 TH/MM3 (4.0-11.0) Neutrophils # (Auto) 8.3 TH/MM3 (1.8-7.7) Sodium Level 134 MEQ/L (136-145) Imaging Last Impressions Renal Ultrasound 06/27/17 0000 Signed Impressions: Service Date/Time: Tuesday, June 27, 2017 11:18 - CONCLUSION: 1. Significantly distended bladder containing small amount of debris consistent with neurogenic bladder versus bladder outlet obstruction. 2. Subtle prominence of the right renal pelvis. Otherwise, no hydronephrosis. 3. Diffusely increased renal cortical echogenicity consistent with medical renal disease. Barber Espino MD Liver Ultrasound 06/27/17 0000 Signed Impressions: Service Date/Time: Tuesday, June 27, 2017 09:19 - CONCLUSION: 1. Prior cholecystectomy. 2. Otherwise, unremarkable exam. Guicho Barnett Jr., MD Sacrum and Coccyx X-Ray 06/26/17 0000 Signed Impressions: Service Date/Time: Monday, June 26, 2017 16:05 - CONCLUSION: Negative for acute process. Luis Reynoso MD FACR Brain MRI 06/26/17 0000 Signed Impressions: Service Date/Time: Monday, June 26, 2017 11:10 - CONCLUSION: 1. Redemonstration of mild to moderate scattered white matter signal changes. Although stable, this remains out of proportion for simple benign microvascular ischemic change. 2. Otherwise, no acute intracranial abnormality or interval change. Barber Espino MD Head CT 06/24/171951 Signed Impressions: Service Date/Time: Sunday, June 25, 2017 00:23 - CONCLUSION: 1. No acute findings. No significant change from May 2017. Carlito Kruse MD Chest X-Ray 06/24/171951 Signed Impressions: Service Date/Time: Saturday, June 24, 2017 20:06 - CONCLUSION: Subsegmental consolidative infiltrate right lower lung. Guicho Villalobos MD PE at Discharge GENERAL: Well-nourished, well-developed female patient in [facility]. SKIN: Warm and dry. No rash. Sacral ulcer covered with mepilex, no surrounding erythema or foul odor. HEENT: Normocephalic. Atraumatic. Pupils equal and round. Mucous membranes pink and moist. NECK: Supple. Trachea midline. CARDIOVASCULAR: Regular rate and rhythm. S1, S2 noted. No murmur appreciated. RESPIRATORY: No accessory muscle use. Clear to auscultation. Breath sounds equal bilaterally. GASTROINTESTINAL: Abdomen soft, non-tender, nondistended. Normoactive bowel sounds x4. MUSCULOSKELETAL: No obvious deformities. Extremities without clubbing, cyanosis , or edema. NEUROLOGICAL: Awake and alert. No obvious cranial nerve deficits. Motor grossly within normal limits. Moving all extremities spontaneously. Normal speech. PSYCHIATRIC: Calm mood. Smiling. Insight and judgment limited. Hospital Course MRI brain with no acute changes from baseline. Ammonia level normal. White count mildly elevated at 11.7 on admission. Chest x-ray did show right lower lobe pneumonia. Patient was treated with Levaquin, with improvement. Urinalysis with white blood cell clumps indicative of infection, however urine culture grew out Nicolle glabrata. Ultrasound kidneys did not show hydronephrosis, however did show a distended bladder with sediment indicative of chronic retention. Patient was started on Flomax with subjective improvement , however still market elevation on bladder scan of 999 mL. Jacob was inserted. Jacob will need to be changed in one week. She'll need referral to urology. Patient will be sent home on Levaquin to complete treatment course for pneumonia, suspected bacterial uti. Recommend repeat chest x-ray in 1-2 weeks. Also, most notably patient had Dilantin level of 28.9 on admission, which improved to normal treatment range at discharge. Dilantin dosing was adjusted. This should be followed up at receiving facility. For problem based summary from most recent progress note, please see below. 61-year-old female with a PMH of COPD, HTN, DM, Cocaine Abuse and Tobacco Abuse who was sent to the ER from [facility] secondary to AMS and multiple falls. //Acute Encephalopathy: sent to ER from SNF for acute AMS, baseline unknown, combative/agitated requiring sedation in ER. AMS suspected to be due to underlying infection-+UTI and PNA. -CT Head w/ no acute findings, images reviewed by me. -Blood cultures with no growth x1day -H/o Cocaine Abuse per records, Urine Drug Screen negative. -Monitor neurochecks -Consult PT/OT, patient is from SNF //Urinary retention -Ultrasound without hydronephrosis, however does show distended bladder. -Likely exacerbated by narcotics. Hold narcotics Started on Flomax. Appears to have improved. Will check ultrasound, hopefully postvoid residual is less than 250 mL. //Dilantin Toxicity, Questionable Seizure: patient found on floor this morning by nursing staff, appeared to have partial seizure and then postictal -Dilantin level 28.9 upon arrival, dilantin held, check stat dilantin level and restart if indicated -check Brain MRI -check EEG -neuro checks, seizure precaution -Appreciate neurology's assistance. Neurology feels that symptoms are secondary to infection. Levels improved. We will discharge home on decreased dosing. = EEG with no epileptic activity. Repeat Dilantin within treatment range. Charge home on lower dose //PNA: CXR w/ RLL infiltrate, images reviewed by me. Mild leukocytosis with WBC 11.7K, tachycardic HR 104 -Continue w/ IV Abx with Rocephin/Azithro. -DuoNeb q4h prn. = At discharge can continue Levaquin to complete treatment course. //UTI: U/a w/ UTI -Continue on IV Rocephin (also being treated for pneumonia as above) -Nicolle glabrata. Patient has chronic dirty UA. Unlikely UTI. -Treating bladder distention as above. //Diabetes Mellitus: chronic, BG fairly well controlled -Continue Sliding scale w/ Accu-Cheks. -Continue home Levemir 5u //Sacral Ulcer: present on admission, documented on previous admissions -consult final application reviewer -continue mepilex dressing for now //DVT Prophylaxis: SCD/Teds. Discharge Planning bladder scan pending. if less than 250ml okay to go back to SNF. After workup, patient can likely go back to SNF on by mouth antibiotics to complete course for pneumonia, lower dose of Dilantin due to Dilantin toxicity. Pt Condition on Discharge: Good Discharge Disposition: Discharge to SNF Discharge Time: > 30 minutes Discharge Instructions DIET: Follow Instructions for: Diabetic Diet Activities you can perform: Regular-No Restrictions Follow up Referrals: Neurology - 1 Week New Orders: PHENYTOIN (DILANTIN) - 1 Week New Medications: Levofloxacin (Levofloxacin) 750 Mg Tablet 750 MG PO DAILY for Infection for 7 Days, #7 TAB 0 Refills Tamsulosin (Flomax) 0.4 Mg Cap 0.4 MG PO HS for urinary retention, #30 CAP 0 Refills Continued Medications: Acetaminophen (Tylenol) 325 Mg Tab 650 MG PO Q6H PRN for PAIN SCALE 1 TO 10, TAB 0 Refills Ascorbic Acid (Vitamin C) 250 Mg Chew 500 MG CHEW DAILY for Nutritional Supplement, #30 TAB 0 Refills Aspirin (Tgt Aspirin) 81 Mg Chw 81 MG CHEW DAILY for Blood Clot Prevention, #30 EA Ferrous Sulfate (Ferrous Sulfate) 325 Mg (65 Mg Iron) Tablet 325 MG PO DAILY for Nutritional Supplement, #30 TAB 0 Refills Folic Acid (Folic Acid) 1 Mg Tablet 1 MG PO DAILY for vitamin, #30 TAB Hydrocodone/Acetaminophen (Hydrocodone-Acetamin 5-325 mg) 5 Mg-325 Mg Tablet 1 TAB PO Q6HR PRN for PAIN SCALE 5 TO 10, #20 TAB (This prescription has been renewed) Insulin Aspart Inj (Novolog Inj) 1,000 Unit/10 Ml Vial 0 SQ DIRECTED for Blood Sugar Management, #10 ML 0 Refills Sliding Scale as directed. Insulin Detemir Inj (Levemir Inj) 1,000 unit/ 10 ML Vial 5 UNITS SQ DAILY for Blood Sugar Management for 30 Days, INJECTION Do not mix with any other Insulin. Ipratropium-Albuterol Neb (Duoneb) 0.5-2.5 Mg/3 Ml Neb 1 NEBULE INH Q4HR NEB for SHORTNESS OF BREATH, #120 NEBULE 0 Refills Lisinopril (Lisinopril) 5 Mg Tab 5 MG PO DAILY for Blood Pressure Management, #30 TAB 0 Refills Metoprolol Succinate ER 24 HR (Metoprolol Succinate ER 24 HR) 25 Mg Tab 25 MG PO DAILY, #30 TAB 0 Refills Mirtazapine (Mirtazapine) 15 Mg Tab 15 MG PO HS for Depression Control, #30 TAB 0 Refills Pantoprazole (Pantoprazole) 40 Mg Tab 40 MG PO DAILY for Reflux, #30 TAB Phenytoin Extended (Phenytoin Extended) 100 Mg Cap 100 MG PO DAILY for Control Seizures, #90 CAP 0 Refills (This prescription has been renewed) Thiamine HCl (Gnp Vitamin B-1) 100 Mg Tab 100 MG PO DAILY for vitamin, #30 TAB Zinc Sulfate (Zinc Sulfate) 220 Mg Tab 220 MG PO DAILY for Nutritional Supplement, TAB 0 Refills Discontinued Medications: Phenytoin Extended (Phenytoin Extended) 300 Mg Cap 300 MG PO BID for Control Seizures, #90 CAP 0 Refills Elliot Law MD Jun 28, 2017 09:28
[2017-06-28] MEDS ORDERED: PHENYTOIN SODIUM 100 MG CAP PO SCH (11:00)
[2017-06-28 12:40] VITALS: BP 150/94; PULSE 97; RESP 18; TEMP 98.4; O2SAT 100
== END 2017-06-28 18:26 | DRG 70 ==
LOC: NEPE 19:32 → NEDA 23:52 → NEPFCDU 06-25 02:51 → OBSVTOIN 06-26 09:06
PROVIDERS: ADMIT Internal Medicine; ATTEND Internal Medicine
DX: G93.41 Metabolic encephalopathy (principal); J18.9 Pneumonia, unspecified organism; L89.150 Pressure ulcer of sacral region, unstageable; J44.0 Chronic obstructive pulmonary disease with (acute) lower respiratory infection; E11.9 Type 2 diabetes mellitus without complications; Z79.4 Long term (current) use of insulin; I10 Essential (primary) hypertension; B37.49 Other urogenital candidiasis; T42.0X1A Poisoning by hydantoin derivatives, accidental (unintentional), initial encounter; R56.9 Unspecified convulsions; R29.6 Repeated falls; R33.9 Retention of urine, unspecified; F17.210 Nicotine dependence, cigarettes, uncomplicated; H91.92 Unspecified hearing loss, left ear; I25.2 Old myocardial infarction; Z96.653 Presence of artificial knee joint, bilateral
CPT/HCPCS: 70450; 70551; 71045; 72220; 76705; 76775; 80053; 80069; 80185; 80307; 81001; 82140; 82550; 82948; 83605; 83735; 84443; 84484; 85025; 85610; 87040; 87086; 87106; 93005; 95819; 96361; 96365; 96366; G0378; J0456; J0696; J1815; J2060; J7030; J7050